=== PATIENT | female | born 1995 | race Caucasian/White ===

== ENCOUNTER 2023-01-23 11:30 | Emergency (ER) | payer OTHER, SELFPAY ==
[2023-01-23 11:59] VITALS: BP 120/80; PULSE 60; RESP 18; TEMP 36.8; O2SAT 100; BMI 23.6
[2023-01-23 12:36] LABS: Basophils % 0.5 %; Eosinophils # 0.1 10^3/uL (0.0-0.8); Eosinophils % 2.8 %; Hematocrit 38.4 % (37.0-47.0); Hemoglobin 12.9 g/dL (11.5-15.3); Lymphocytes # 2.1 10^3/uL (0.8-4.8); Lymphocytes % 48.2 %; Mean Corpuscular HGB Conc 33.6 g/dL (30.0-36.0); Mean Corpuscular Hemoglobin 28.4 pg (28.0-34.0); Mean Corpuscular Volume 84.4 fl (81-99); Mean Platelet Volume 9.5 fL (7.4-10.4); Monocytes # 0.2 10^3/uL (0.2-0.9); Monocytes % 5.4 %; Neutrophils # 1.84 10^3/uL (1.8-7.7); Neutrophils % 43.1 %; Nucleated Red Blood Cells % 0 %; Platelet Count 269 10^3/cmm (130-400); Red Blood Count 4.55 10^6/uL (4.1-5.3); White Blood Count 4.3 10^3/uL (4.0-10.0)
[2023-01-23 12:57] LABS: HCG Quantitative 3.14 mIU/mL
[2023-01-23 13:09] LABS: Alanine Aminotransferase 20 U/L (0-33); Albumin Level 4.9 g/dL (3.5-5.2); Alkaline Phosphatase 94 U/L (35-105); Aspartate Amino Transferase 25 U/L (0-32); Blood Urea Nitrogen 7 mg/dL (6-20); Calcium 9.4 mg/dL (8.5-10.5); Carbon Dioxide 24 mmol/L (22-29); Chloride 102 mmol/L (98-107); Globulin 3.3 g/dL (1.3-4.6); Glomerular Filtration Rate 98.9 mL/min (90-130); Glucose 127 mg/dL (65-115); Osmolality Calculated 286 mOsm/kg (285-295); Sodium 138 mmol/L (136-145); Total Bilirubin 0.4 mg/dL (0.15-1.2); Total Protein 8.2 g/dL (6.6-8.7)
[2023-01-23 13:11] LABS: Add Urine Microscopic? NO; Charge for UA Resulting for Rev
[2023-01-23 13:15] LABS: Bilirubin Urine Neg (Negative); Blood Urine Neg (Negative); Glucose Urine UA Norm (Normal); Ketones Urine Negative (Negative); Leukocyte Esterase Urine Negative (Negative); Nitrate Urine Negative (Negative); Protein Urine Neg (Negative); Specific Gravity, Urine 1.005 (1.005-1.030); Urine Appearance Clear (CLEAR); Urine Color Colorless (Yellow); Urobilinogen Urine Norm (Negative); pH Urine 7 (5-7)
--- NOTE | 2023-01-23 13:20 | ED_ITS ---
HPI - Abdominal Pain General: Chief Complaint: Abdominal Pain Stated Complaint: less than 4 weeks preg, abd pain Time Seen by Provider: 01/23/23 12:36 History of Present Illness: Presents to the ER with complaints of left lower quadrant pain for 3 days. States she went to [facility] last week when she had a small amount of bloody discharge and she was worried about an ectopic because she should be approximately 4 weeks along per her last menstrual cycle. And multiple positive test at home. [facility] told her that she was miscarrying as her hCG was 8. 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 However patient does have 1 living child at home. Patient was on her way home today and started having more pain where she went in about 2 more tests [id number] and they both stated positive so she decided to pull in the ER and be evaluated. Review of Systems General: Reports: 10 or more systems reviewed and unremarkable except in HPI and below Physical Exam Const: COMMON NORMALS: no acute distress, average body habitus, patient oriented x3, no limitations, healthy appearing, alert and well nourished HENMT: COMMON NORMALS: normocephalic, atraumatic, hearing grossly normal bilaterally, external ears normal, Normal external nose present and moist oral mucous membranes HEAD & SCALP: normocephalic and atraumatic NOSE: Normal external nose present EXTERNAL EAR: Yes external ears normal Neck/C-Spine: COMMON NORMALS: full ROM, no lymphadenopathy, supple, no meningeal signs, no JVD and Thyroid normal THYROID: Thyroid normal Chest: COMMONS NORMALS: normal inspection of the chest Resp: COMMON NORMALS: normal respiratory effort, No retractions and No use of accessory muscles Cardio: COMMON NORMALS: no JVD GI: COMMON NORMALS: Normal to inspection, nondistended, normoactive bowel sounds present, Soft to palpation, non-tender, No hepatosplenomegaly present and no masses PALPATION: Yes Soft to palpation and Yes No hepatosplenomegaly present Neuro: COMMON NORMALS: patient oriented x3 SENSORIUM/ORIENTATION: Yes alert MENINGEAL SIGNS: Yes no meningeal signs Course Vital Signs: Vital signs: Vital Signs Temperature 98.2 F 01/23/23 11:59 Pulse Rate 60 01/23/23 11:59 Respiratory Rate 18 01/23/23 11:59 Blood Pressure 120/80 01/23/23 11:59 Pulse Oximetry 100 01/23/23 11:59 Oxygen Delivery Me thod Room Air 01/23/23 11:59 MDM - Abdominal Pain Medical Decision Making Patient presents to the ER with left lower quadrant abdominal pain multiple positive test however she had a very low quantitative beta-hCG at [facility] and was told she was miscarrying. Patient's had no more bleeding since then however we tested her quantitative beta-hCG and we got a 3. Patient had multiple miscarriages in the past secondary to a bicornate uterus. These results were discussed in detail patient patient will be discharged home. Patient says she has appointment with her infertility doctor in approximately 3 days already. Patient should keep that appointment. Differential Diagnosis Likely abdominal pain; Unlikely acute appendicitis, calculus of kidney, constipation, diverticulitis, endometriosis, gastroenteritis, pancreatitis or small bowel obstruction Medical Records I reviewed the patient's medical records. Lab Data I reviewed the patient's lab results. 01/23/23 12:24 01/23/23 12:24 Labs/Radiology: Laboratory Results WBC 4.3 10^3/uL (4.0-10.0) 01/23/23 12:24 RBC 4.55 10^6/uL (4.1-5.3) 01/23/23 12:24 Hgb 12.9 g/dL (11.5-15.3) 01/23/23 12:24 Hct 38.4 % (37.0-47.0) 01/23/23 12:24 MCV 84.4 fl (81-99) 01/23/23 12:24 MCH 28.4 pg (28.0-34.0) 01/23/23 12:24 MCHC 33.6 g/dL (30.0-36.0) 01/23/23 12:24 RDW 13.0 % (12.1-15.1) 01/23/23 12:24 Plt Count 269 10^3/cmm (130-400) 01/23/23 12:24 MPV 9.5 fL (7.4-10.4) 01/23/23 12:24 Neut % (Auto) 43.1 % 01/23/23 12:24 Lymph % (Auto) 48.2 % 01/23/23 12:24 [place] % (Auto) 5.4 % 01/23/23 12:24 Eos % (Auto) 2.8 % 01/23/23 12:24 Baso % (Auto) 0.5 % 01/23/23 12:24 Neut # (Auto) 1.84 10^3/uL (1.8-7.7) 01/23/23 12:24 Lymph # (Auto) 2.1 10^3/uL (0.8-4.8) 01/23/23 12:24 [place] # (Auto) 0.2 10^3/uL (0.2-0.9) 01/23/23 12:24 Eos # (Auto) 0.1 10^3/uL (0.0-0.8) 01/23/23 12:24 Baso # (Auto) 0.0 10^3/uL (0.0-0.1) 01/23/23 12:24 Nucleated RBC % (auto) 0 % 01/23/23 12:24 Nucleated RBCs # 0.0 /100WBC 01/23/23 12:24 Sodium 138 mmol/L (136-145) 01/23/23 12:24 Potassium 4.0 mmol/L (3.5-5.1) 01/23/23 12:24 Chloride 102 mmol/L (98-107) 01/23/23 12:24 Carbon Dioxide 24 mmol/L (22-29) 01/23/23 12:24 Anion Gap 16.0 (5-19) 01/23/23 12:24 BUN 7 mg/dL (6-20) 01/23/23 12:24 Creatinine 0.7 mg/dL (0.5-0.9) 01/23/23 12:24 GFR Calculation 98.9 mL/min (90-130) 01/23/23 12:24 Glucose 127 mg/dL (65-115) H 01/23/23 12:24 Calculated Osmolality 286 mOsm/kg (285-295) 01/23/23 12:24 Calcium 9.4 mg/dL (8.5-10.5) 01/23/23 12:24 Total Bilirubin 0.4 mg/dL (0.15-1.2) 01/23/23 12:24 AST 25 U/L (0-32) 01/23/23 12:24 ALT 20 U/L (0-33) 01/23/23 12:24 Alkaline Phosphatase 94 U/L (35-105) 01/23/23 12:24 Total Protein 8.2 g/dL (6.6-8.7) 01/23/23 12:24 Albumin 4.9 g/dL (3.5-5.2) 01/23/23 12:24 Globulin 3.3 g/dL (1.3-4.6) 01/23/23 12:24 Ser , Semi-Qnt 3.14 mIU/mL 01/23/23 12:24 Urine Color Colorless (Yellow) 01/23/23 11:58 Urine Appearance Clear (CLEAR) 01/23/23 11:58 Urine pH 7 (5-7) 01/23/23 11:58 Ur Specific [place] 1.005 (1.005-1.030) 01/23/23 11:58 Urine Protein Neg (Negative) 01/23/23 11:58 Urine Glucose (UA) Norm (Normal) 01/23/23 11:58 Urine Ketones Negative (Negative) 01/23/23 11:58 Urine Blood Neg (Negative) 01/23/23 11:58 Urine Nitrate Negative (Negative) 01/23/23 11:58 Urine Bilirubin Neg (Negative) 01/23/23 11:58 Urine Urobilinogen Norm mg/dL (Negative) 01/23/23 11:58 Ur Leukocyte Esterase Negative (Negative) 01/23/23 11:58 Blood Type A Positive 01/23/23 12:24 Rho(D) Type Positive 01/23/23 12:24 Discharge Plan Discharge Patient Disposition: Home Clinical Impression: Spontaneous miscarriage Condition: Stable Discharge Orders: Discharge ED (Routine); Ordered 01/23/23 Ordered By: Rome Patel Referrals: Roxanne Lobo MD [Primary Care Provider] - 1 week Patient Instructions: Miscarriage (ED) Activity Restrictions/Additional Instructions: Please keep your appointment with your infertility doctor on as previously planned. Your quantitative beta-hCG was 3 in the ER. This is lower than it was before at [facility]. This most likely means you are having or have had a spontaneous miscarriage. Coding Level of Care Code ED Handle And Vent Machine Operator for Rakesh Del Angel
[2023-01-23 13:35] VITALS: BP 114/76; PULSE 67; RESP 16; TEMP 37; O2SAT 98
== END 2023-01-23 13:39 | disposition home or self-care (01) ==
PROVIDERS: Physician Assistant; Emergency Provider Emergency Medicine; PCP Family Medicine
DX: O03.9 Complete or unspecified spontaneous abortion without complication (principal)
CPT/HCPCS: 36415; 80053; 81003; 84702; 85025; 86900; 99283

== ENCOUNTER 2023-01-29 20:45 | Emergency (ER) | payer OTHER, SELFPAY ==
[2023-01-29 20:55] VITALS: BP 119/82; PULSE 90; RESP 16; TEMP 36.7; O2SAT 100; BMI 23.6
--- NOTE | 2023-01-29 21:15 | ED_ITS ---
HPI - General: Chief complaint: OB/Uterine Contractions Stated complaint: Positive Preg\Etopic Preg Last week Time Seen by Provider: 01/29/23 21:04 Source: patient Mode of arrival: ambulatory Limitations: no limitations History of Present Illness: 28-year-old female who states she has had complicated history of multiple miscarriage and ectopic she is concerned about ectopic states she been having bleeding along with abdominal pain for the last week to 2 weeks. She was seen here last week had a quantitative 5 but states that she keeps having positive urine pregnancies and had a strong 1 today's had some slight bleeding but it has lessened since last week. Has some suprapubic pain she rates a 4 out of 10 currently Associated symptoms: Reports abdominal pain; Deny headache(s), nausea or vomiting Review of Systems Const: Denies: fever(s) or chills ENMT: Denies: throat pain or dental pain Card: Denies: chest pain Resp: Denies: dyspnea GI: Reports: abdominal pain; Denies: nausea, vomiting or diarrhea Skin/Breast: Denies: rash Neuro: Denies: headache(s) Physical Exam Const: COMMON NORMALS: no acute distress and patient oriented x3 HENMT: COMMON NORMALS: atraumatic HEAD & SCALP: atraumatic Eye: COMMON NORMALS: conjunctivae normal CONJUNCTIVA: Yes conjunctivae normal Chest: COMMONS NORMALS: normal inspection of the chest Resp: COMMON NORMALS: normal respiratory effort GI: COMMON NORMALS: Normal to inspection, nondistended, normoactive bowel sounds present, Soft to palpation and non-tender PALPATION: Yes Soft to palpation Neuro: COMMON NORMALS: patient oriented x3 Psych: COMMON NORMALS: mental status grossly normal Skin: COMMON NORMALS: no rashes or lesions noted GENERAL SKIN EXAM: no rashes or lesions noted Course Vital Signs: Vital signs: Vital Signs Temperature 98.1 F 01/29/23 22:44 Pulse Rate 90 01/29/23 22:44 Respiratory Rate 16 01/29/23 22:44 Blood Pressure 119/82 01/29/23 22:44 Pulse Oximetry 100 01/29/23 22:44 Oxygen Delivery Me thod Room Air 01/29/23 20:55 MDM - OB/Uterine Contractions Medical Decision Making Patient presents here with threatened miscarriage her quantitative here is quite low no signs of ectopic on ultrasound she sees a fertility specialist she is to contact him in the morning she had no severe bleeding vital signs here are normal. Lab Data 01/29/23 21:05 01/29/23 21:05 Laboratory Results WBC 7.0 10^3/uL (4.0-10.0) 01/29/23 21:05 RBC 4.33 10^6/uL (4.1-5.3) 01/29/23 21:05 Hgb 12.4 g/dL (11.5-15.3) 01/29/23 21:05 Hct 38.0 % (37.0-47.0) 01/29/23 21:05 MCV 87.8 fl (81-99) 01/29/23 21:05 MCH 28.6 pg (28.0-34.0) 01/29/23 21:05 MCHC 32.6 g/dL (30.0-36.0) 01/29/23 21:05 RDW 13.1 % (12.1-15.1) 01/29/23 21:05 Plt Count 256 10^3/cmm (130-400) 01/29/23 21:05 MPV 9.7 fL (7.4-10.4) 01/29/23 21:05 Neut % (Auto) 60.2 % 01/29/23 21:05 Lymph % (Auto) 31.5 % 01/29/23 21:05 [place] % (Auto) 5.7 % 01/29/23 21:05 Eos % (Auto) 2.0 % 01/29/23 21:05 Baso % (Auto) 0.3 % 01/29/23 21:05 Neut # (Auto) 4.20 10^3/uL (1.8-7.7) 01/29/23 21:05 Lymph # (Auto) 2.2 10^3/uL (0.8-4.8) 01/29/23 21:05 [place] # (Auto) 0.4 10^3/uL (0.2-0.9) 01/29/23 21:05 Eos # (Auto) 0.1 10^3/uL (0.0-0.8) 01/29/23 21:05 Baso # (Auto) 0.0 10^3/uL (0.0-0.1) 01/29/23 21:05 Nucleated RBC % (auto) 0 % 01/29/23 21:05 Nucleated RBCs # 0.0 /100WBC 01/29/23 21:05 Sodium 136 mmol/L (136-145) 01/29/23 21:05 Potassium 3.8 mmol/L (3.5-5.1) 01/29/23 21:05 Chloride 100 mmol/L (98-107) 01/29/23 21:05 Carbon Dioxide 26 mmol/L (22-29) 01/29/23 21:05 Anion Gap 13.8 (5-19) 01/29/23 21:05 BUN 11 mg/dL (6-20) 01/29/23 21:05 Creatinine 0.6 mg/dL (0.5-0.9) 01/29/23 21:05 GFR Calculation 118.2 mL/min (90-130) 01/29/23 21:05 Glucose 89 mg/dL (65-115) 01/29/23 21:05 Calculated Osmolality 281 mOsm/kg (285-295) L 01/29/23 21:05 Calcium 9.3 mg/dL (8.5-10.5) 01/29/23 21:05 Total Bilirubin 0.2 mg/dL (0.15-1.2) 01/29/23 21:05 AST 21 U/L (0-32) 01/29/23 21:05 ALT 18 U/L (0-33) 01/29/23 21:05 Alkaline Phosphatase 81 U/L (35-105) 01/29/23 21:05 Total Protein 7.6 g/dL (6.6-8.7) 01/29/23 21:05 Albumin 4.5 g/dL (3.5-5.2) 01/29/23 21:05 Globulin 3.1 g/dL (1.3-4.6) 01/29/23 21:05 Ser , Semi-Qnt 21.79 mIU/mL 01/29/23 21:05 Discharge Plan Discharge Patient Disposition: Home Clinical Impression: Threatened miscarriage Condition: Stable Discharge Orders: Discharge ED (Routine); Ordered 01/29/23 Ordered By: Penelope Bull Referrals: Roxanne Lobo MD [Primary Care Provider] - Discharge Diet: Advance as tolerated Discharge Activity: Resume usual activity Patient Instructions: Threatened Miscarriage (ED) Coding Level of Care Code ED Labor Relations Teacher for Rakesh Del Angel
[2023-01-29 21:19] LABS: Basophils % 0.3 %; Eosinophils # 0.1 10^3/uL (0.0-0.8); Hemoglobin 12.4 g/dL (11.5-15.3); Lymphocytes # 2.2 10^3/uL (0.8-4.8); Lymphocytes % 31.5 %; Mean Corpuscular HGB Conc 32.6 g/dL (30.0-36.0); Mean Corpuscular Hemoglobin 28.6 pg (28.0-34.0); Mean Corpuscular Volume 87.8 fl (81-99); Mean Platelet Volume 9.7 fL (7.4-10.4); Monocytes # 0.4 10^3/uL (0.2-0.9); Monocytes % 5.7 %; Neutrophils % 60.2 %; Nucleated Red Blood Cells % 0 %; Platelet Count 256 10^3/cmm (130-400); Red Blood Count 4.33 10^6/uL (4.1-5.3); Red Cell Distribution Width 13.1 % (12.1-15.1)
--- NOTE | 2023-01-29 21:23 | PC.NURSE ---
RN into room to perform initial assessment of pt. RN asked pt pain level. Pt stated her pain was at a 7/10 in the suprapubic region. Pt adamantly stated that she did not want any form of pain medication due to fear of complicating chances of getting . RN informed pt that ibuprofen and acetaminophen available. Pt stated that she still did not want any pain medication. MD informed.
[2023-01-29 21:44] LABS: HCG Quantitative 21.79 mIU/mL
--- NOTE | 2023-01-29 21:47 | USR_ITS ---
PROCEDURE INFORMATION: Exam: US First Trimester, Transabdominal and US , Transvaginal Exam date and time: 01/29/2023 9:53 PM Age: 28 years old Clinical indication: complicated by abdominal or pelvic pain; Left lower quadrant; First trimester (<14 weeks 0 days); Gestational age or lmp: 5d; ; Additional info: Abd pain LABS AND CLINICAL REPORTS: Last menstrual period start date: 01/24/2023 TECHNIQUE: Imaging protocol: Real-time transabdominal obstetrical ultrasound of the maternal pelvis and a first trimester , less than 14 weeks 0 days, with image documentation. Transvaginal imaging was used for better evaluation of the fetus, adnexa, and/or cervix. COMPARISON: No relevant prior studies available. FINDINGS: Gestation: Intrauterine gestational sac is not demonstrated. Findings are compatible with of unknown location. A thin walled empty simple cyst in the uterine isthmus is not compelling for a gestational sac. Embryonic/ heart rate: Not relevant. Extra-embryonic membranes/Placenta: Not relevant.. Amniotic fluid: Not relevant. BIOMETRY: Gestational age (AUA): Not determined. MATERNAL: Uterus: Uterus measures 3.0 cm x 9.6 cm x 5.2 cm. Trilaminar endometrial echo complex measures 3 mm. Cervix: Cervical nabothian cysts are noted. Right ovary/adnexa: Physiologic appearance of the right ovary with normal arterial and venous blood flow. Right ovary measures 2.9 x 2.0 x 3.3 cm. Left ovary/adnexa: Physiologic appearance of the left ovary with normal arterial and venous blood flow. Left ovary measures 2.2 x 2.3 x 1.5 cm. Intraperitoneal space: No pelvic free fluid. US/US OB <= 14 weeks fetus [id number] IMPRESSION: 1. Intrauterine gestational sac is not demonstrated. Findings are compatible with of unknown location. Differential diagnosis includes early IUP, early ectopic , or missed . Recommend serial HCG and ultrasound to differentiate. 2. Cervical nabothian cysts are noted. A uterine isthmic thin walled simple cyst is present as well. These are not compelling for gestational sacs.
[2023-01-29 21:55] LABS: Alanine Aminotransferase 18 U/L (0-33); Albumin Level 4.5 g/dL (3.5-5.2); Alkaline Phosphatase 81 U/L (35-105); Anion Gap 13.8 (5-19); Aspartate Amino Transferase 21 U/L (0-32); Blood Urea Nitrogen 11 mg/dL (6-20); Calcium 9.3 mg/dL (8.5-10.5); Carbon Dioxide 26 mmol/L (22-29); Chloride 100 mmol/L (98-107); Creatinine Clr Calc Pharmacy 150.1519; Globulin 3.1 g/dL (1.3-4.6); Glomerular Filtration Rate 118.2 mL/min (90-130); Glucose 89 mg/dL (65-115); Osmolality Calculated 281 mOsm/kg (285-295); Potassium 3.8 mmol/L (3.5-5.1); Sodium 136 mmol/L (136-145); Total Bilirubin 0.2 mg/dL (0.15-1.2); Total Protein 7.6 g/dL (6.6-8.7)
[2023-01-29 22:44] VITALS: BP 119/82; PULSE 90; RESP 16; TEMP 36.7; O2SAT 100
== END 2023-01-29 22:45 | disposition home or self-care (01) ==
PROVIDERS: Emergency Provider Emergency Medicine; PCP Family Medicine
DX: O20.0 Threatened abortion (principal); Z3A.00 Weeks of gestation of pregnancy not specified
CPT/HCPCS: 76801; 80053; 84702; 85025; 99284

== ENCOUNTER 2023-02-01 16:47 | Outpatient (CLI) | payer OTHER, SELFPAY ==
[2023-02-01 17:24] LABS: Progesterone 7.15 ng/mL
[2023-02-02 07:28] LABS: HCG Quantitative 67.39 mIU/mL
== END 2023-02-01 16:48 | disposition home or self-care (01) ==
PROVIDERS: PCP Family Medicine; Visit Provider Family Medicine
DX: Z87.59 Personal history of other complications of pregnancy, childbirth and the puerperium (principal)
CPT/HCPCS: 84144; 84702

== ENCOUNTER 2023-02-06 07:41 | Outpatient (CLI) | payer OTHER, SELFPAY ==
[2023-02-06 08:05] LABS: HCG Quantitative 9.98 mIU/mL
== END 2023-02-06 07:42 | disposition home or self-care (01) ==
PROVIDERS: PCP Family Medicine; Visit Provider Family Medicine
DX: O20.0 Threatened abortion (principal); Z3A.00 Weeks of gestation of pregnancy not specified
CPT/HCPCS: 84702

== ENCOUNTER 2023-05-10 06:31 | Outpatient (CLI) | payer OTHER, SELFPAY ==
[2023-05-10 07:10] LABS: HCG Quantitative 77.85 mIU/mL
== END 2023-05-10 06:32 | disposition home or self-care (01) ==
LOC: LAB 06:37
PROVIDERS: PCP Nurse Practitioner Family; Visit Provider Nurse Practitioner Family
DX: Z32.01 Encounter for pregnancy test, result positive (principal)
CPT/HCPCS: 36415; 84702

== ENCOUNTER 2023-05-12 06:46 | Outpatient (CLI) | payer OTHER, SELFPAY | END 2023-05-12 06:47 | disposition home or self-care (01) | LOC: LAB 06:47 | PROVIDERS: PCP Nurse Practitioner Family; Visit Provider Nurse Practitioner Family | DX: Z32.01 Encounter for pregnancy test, result positive (principal) | CPT/HCPCS: 36415; 84702 ==

== ENCOUNTER 2023-05-12 15:03 | Emergency (ER) | payer OTHER, SELFPAY ==
[2023-05-12 15:14] VITALS: BP 110/72; PULSE 84; RESP 18; TEMP 36.8; O2SAT 98; BMI 24.3
--- NOTE | 2023-05-12 16:00 | USR_ITS ---
PROCEDURE INFORMATION: Exam: US Pelvis, Transvaginal Exam date and time: 05/12/2023 4:53 PM Age: 28 years old Clinical indication: Pelvic pain; Additional info: , pelvic pain TECHNIQUE: Imaging protocol: Real-time transvaginal pelvic ultrasound with image documentation. Transvaginal imaging was used for better evaluation of the endometrium, adnexa, and/or cervix. COMPARISON: US OB <= 14 weeks fetus [id number] 01/29/2023 9:53 PM FINDINGS: Uterus: No IUP visualized. Endometrial stripe measures approximately 11 mm. Some nabothian cysts are present. Right ovary/adnexa: Normal ovarian blood flow. hypoechoic right ovarian foci with peripheral Doppler signal on image 49 measuring approximately 1.6 cm. Left ovary/adnexa: Normal ovarian blood flow. Intraperitoneal space: Small volume free fluid in the cul-de-sac. US/US transvaginal [id number] IMPRESSION: Intrauterine gestational sac is not demonstrated. Hypoechoic right ovarian foci suggestive but not definitive of corpus luteal type cyst. Recommend short-term sonographic follow-up given history of unknown location.
[2023-05-12 16:30] LABS: Add Urine Microscopic? NO; Charge for UA Resulting for Rev
[2023-05-12 16:41] LABS: Bilirubin Urine Neg (Negative); Blood Urine Neg (Negative); Glucose Urine UA Norm (Normal); Ketones Urine Negative (Negative); Leukocyte Esterase Urine Negative (Negative); Nitrate Urine Negative (Negative); Protein Urine Neg (Negative); Specific Gravity, Urine 1.015 (1.005-1.030); Urine Appearance Clear (CLEAR); Urine Color Straw (Yellow); Urobilinogen Urine Norm (Negative); pH Urine 6 (5-7)
--- NOTE | 2023-05-12 17:17 | W.ED.FEMALGU ---
HPI - Female Genitourinary General: Chief complaint: Abdominal Pain Stated complaint: right abd pain Time Seen by Provider: 05/12/23 15:27 History of Present Illness: This patient is a 28-year-old white female who presents to the emergency department complaining of right-sided pelvic pain. She has been having this discomfort of the past several days. Patient states she is but her hCG levels are quite low. According to her last menstrual period which was April 04 she is about 5 weeks along. She is seeing a fertility specialist. She states she has frequent miscarriages as well as ectopic pregnancies and her physician told her to come into the emergency department for an ultrasound. She has not had any vaginal bleeding. No dizziness. Review of Systems General: Reports: 10 or more systems reviewed and unremarkable except in HPI and below Physical Exam Const: COMMON NORMALS: no acute distress, patient oriented x3 and no limitations GENERAL APPEARANCE: cooperative and comfortable HENMT: COMMON NORMALS: normocephalic, atraumatic, Normal nasal mucous membranes and turbinates present, moist oral mucous membranes and oropharynx normal HEAD & SCALP: normal to inspection, normocephalic and atraumatic FACE & SINUS: normal facial exam NOSE: Normal nasal mucous membranes and turbinates present Eye: COMMON NORMALS: Equal, round and reactive pupils present, EOMs intact bilaterally and conjunctivae normal GENERAL EYE: appearance normal, both eyes and all related structures CONJUNCTIVA: Yes conjunctivae normal PUPIL: Yes Equal, round and reactive pupils present Neck/C-Spine: COMMON NORMALS: supple and no JVD Chest: COMMONS NORMALS: normal inspection of the chest Resp: COMMON NORMALS: normal respiratory effort and clear to auscultation bilaterally AUSCULTATION: clear to auscultation bilaterally Cardio: COMMON NORMALS: no JVD, regular rate, regular rhythm, No gallops present (Cardio), No murmurs present (Cardio) and No rub (Cardio) RATE: regular rate RHYTHM: regular rhythm GI: COMMON NORMALS: Normal to inspection, nondistended, normoactive bowel sounds present and Soft to palpation AUSCULTATION: Yes normoactive bowel sounds PALPATION: Yes Soft to palpation OTHER: Some mild discomfort to deep palpation in the right lower quadrant/suprapubic area. : COMMON NORMALS: Yes no CVA tenderness BLADDER/KIDNEY EXAM: Yes no CVA tenderness Back/Pelvis: COMMON NORMALS: no CVA tenderness and thoracic and lumbar spine normal to inspection Extremity: COMMON NORMALS: normal to inspection Neuro: COMMON NORMALS: patient oriented x3 and CN's II-XII intact bilaterally Psych: COMMON NORMALS: mental status grossly normal, Normal thought process present and cooperative THOUGHT PROCESS: Normal thought process present Skin: COMMON NORMALS: no rashes or lesions noted, turgor normal and no jaundice GENERAL SKIN EXAM: no rashes or lesions noted and turgor normal Course Vital Signs: Vital signs: Vital Signs Temperature 98.2 F 05/12/23 15:14 Pulse Rate 84 05/12/23 15:14 Respiratory Rate 18 05/12/23 15:14 Blood Pressure 110/72 05/12/23 15:14 Pulse Oximetry 98 05/12/23 15:14 Oxygen Delivery Me thod Room Air 05/12/23 15:14 MDM - Female Medical Decision Making Urine analysis was normal. Pelvic ultrasound did not reveal an IUP at this time. Good blood flow to both ovaries. Small amount of fluid in the cul-de-sac. Patient's quantitative hCG 2 days ago was 78 and today it is 121. Patient was told that it is way too early to determine viability. She will need repeat quantitative hCGs and follow-up with her fertility specialist. She was discharged in stable condition. Lab Data Laboratory Results Urine Color Straw (Yellow) 05/12/23 15:55 Urine Appearance Clear (CLEAR) 05/12/23 15:55 Urine pH 6 (5-7) 05/12/23 15:55 Ur Specific [place] 1.015 (1.005-1.030) 05/12/23 15:55 Urine Protein Neg (Negative) 05/12/23 15:55 Urine Glucose (UA) Norm (Normal) 05/12/23 15:55 Urine Ketones Negative (Negative) 05/12/23 15:55 Urine Blood Neg (Negative) 05/12/23 15:55 Urine Nitrate Negative (Negative) 05/12/23 15:55 Urine Bilirubin Neg (Negative) 05/12/23 15:55 Urine Urobilinogen Norm mg/dL (Negative) 05/12/23 15:55 Ur Leukocyte Esterase Negative (Negative) 05/12/23 15:55 All radiology interpretation(s) finalized by discharge Discharge Plan Discharge Patient Disposition: Home Clinical Impression: Pelvic pain during Condition: Stable Discharge Orders: Discharge ED (Routine); Ordered 05/12/23 Ordered By: Shashi Manning Referrals: Roxanne Lobo MD [Primary Care Provider] - Patient Instructions: Pelvic Pain in Women (ED) Coding Level of Care Code ED Electronic Repair Troubleshooter for Rakesh Del Angel
== END 2023-05-12 17:24 | disposition home or self-care (01) ==
PROVIDERS: Emergency Provider Emergency Medicine; PCP Family Medicine
DX: O26.891 Other specified pregnancy related conditions, first trimester (principal); R10.2 Pelvic and perineal pain; Z3A.01 Less than 8 weeks gestation of pregnancy
CPT/HCPCS: 76830; 81003; 99284

== ENCOUNTER 2023-05-17 08:05 | Outpatient (CLI) | payer OTHER, SELFPAY | END 2023-05-17 08:06 | disposition home or self-care (01) | LOC: LAB 08:08 | PROVIDERS: PCP Family Medicine; Visit Provider Nurse Practitioner Family | DX: Z32.01 Encounter for pregnancy test, result positive (principal) | CPT/HCPCS: 36415; 84702 ==

== ENCOUNTER 2023-05-24 14:05 | Outpatient (CLI) | payer OTHER, SELFPAY | END 2023-05-24 14:06 | disposition home or self-care (01) | PROVIDERS: PCP Nurse Practitioner Family; Visit Provider Nurse Practitioner Family | DX: O03.9 Complete or unspecified spontaneous abortion without complication (principal) | CPT/HCPCS: 36415; 84702 ==

== ENCOUNTER 2023-05-31 10:23 | Emergency (ER) | payer OTHER, SELFPAY ==
[2023-05-31 10:27] VITALS: BMI 22.8
[2023-05-31 10:36] VITALS: BP 147/84; PULSE 103; RESP 16; TEMP 37.1; O2SAT 96
[2023-05-31 10:54] LABS: Basophils % 0.4 %; Eosinophils # 0.1 10^3/uL (0.0-0.8); Eosinophils % 1.8 %; Lymphocytes % 28.4 %; Mean Corpuscular HGB Conc 32.1 g/dL (30-55); Mean Corpuscular Hemoglobin 27.6 pg (27-33); Mean Platelet Volume 9.4 fL (7.4-10.4); Monocytes # 0.3 10^3/uL (0.2-0.9); Monocytes % 3.9 %; Neutrophils # 4.66 10^3/uL (1.8-7.7); Neutrophils % 65.1 %; Nucleated Red Blood Cells % 0 %; Platelet Count 288 10^3/cmm (157-399); Red Cell Distribution Width 12.4 % (12.1-15.1); White Blood Count 7.16 10^3/uL (3.29-11.43)
--- NOTE | 2023-05-31 10:54 | ECG_ITS ---
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 Measurements Intervals [place] Rate: 74 P: 69 SD: 124 QRS: 86 QRSD: 90 T: 70 QT: 402 QTc: 448 Interpretive Statements SINUS RHYTHM No previous ECG available for comparison Electronically Signed On 05-31-2023 15:29:26 FREIGHT ELEVATOR OPERATOR by Camacho Lee M.D. [id number]
--- NOTE | 2023-05-31 10:54 | CT_ITS ---
WS: [id number] CTA CHEST WITH CT ABDOMEN AND PELVIS. HISTORY: Abdominal pain. Prior LEFT tubal . Unresponsive. Pale and clammy. TECHNIQUE: CT angiogram is performed through the chest. Additional imaging is performed through the a bdomen and pelvis with IV contrast. Sagittal and coronal reformats have been submitted. MIP imaging also reviewed. All CT scans at [facility] use at least one of these dose optimization techniqu es: automated exposure control; mA and/or kV adjustment per patient size (includes targeted exams whe re dose is matched to clinical indication); or iterative reconstruction. Contrast: Omnipaque 350; 95 cc IV. DLP: 853.25 mGy.cm COMPARISON: No similar studies. Chest CTA: Adequate opacification of the pulmonary arteries. There is some breathing motion artifact and mixed attenuation from artifact but no occlusion of the pulmonary arteries or filling defects are identified. Normal sized thoracic aorta. Normal sized pulmonary artery. No RIGHT heart strain. Lungs are clear. No pneumonia or pneumothorax. No pericardial or pleural effusions. No adenopathy. Abdomen CT: Normal liver and spleen. Normal gallbladder. Normal pancreas and adrenal glands. No renal obstruction. Normal renal enhancement. Good opacification of the aorta. No GI tract obstruction. No free air is identified. There is a small umbilical hernia. There are a few very tiny superficial s oft tissue foci of air. These are all external to the peritoneal cavity. These may be injection sites . The largest amount of air is along the LEFT abdominal wall near the oblique muscles. Air extends in to the pelvis. Pelvic CT: Urinary bladder is normally distended. Uterus is normal. RIGHT ovarian cyst 3.3 x 2.3 cm. No LEFT adnexal mass. There is no significant amount of bleeding in the pelvis. There is a very tiny amount of fluid in the pelvis which may be postoperative fluid or a small amount of bleeding. IMPRESSION: 1. No pelvic hematoma or significant fluid identified. There is a very small amount of fluid in the c ul-de-sac. Unremarkable postoperative changes in the LEFT adnexa. 2. No pulmonary embolism identified. 3. No pneumonia. 4. No intraperitoneal free air or abscess. 5. There are a few foci of air along the anterior abdominal/pelvis wall which may be related to the r ecent trocar insertion sites if the surgery was laparoscopic.
--- NOTE | 2023-05-31 10:54 | ED_ITS ---
HPI - Abdominal Pain 2 General: Chief Complaint: Abdominal Pain Stated Complaint: abd pain,tubal preg surgery Time Seen by Provider: 05/31/23 10:28 Source: patient Mode of arrival: ambulatory Limitations: no limitations History of Present Illness: 28-year-old female who had an ectopic pr egnancy she had had ectopic removed last Monday by laparoscopically. Patient was at work today been having increasing abdominal pain and had a syncopal event. Patient states she is got diffuse pain she had some slight vaginal bleeding denies any heavy bleeding she denies any chest pain denies any fevers denies any vaginal discharge she rates her pain a 5 out of 10 currently. Associated Symptoms: Reports syncope; Denies chills, diarrhea, dysuria, fever(s), nausea and vomiting Review of Systems 2 Const: Denies: fever(s), chills, body aches or change in appetite ENMT: Denies: throat pain or dental pain Card: Reports: syncope; Denies: chest pain Resp: Denies: dyspnea GI: Reports: abdominal pain; Denies: nausea, vomiting or diarrhea : Denies: dysuria Musc: Denies: neck pain or back pain Skin/Breast: Denies: rash Neuro: Denies: headache(s) PFSH ED 2 PFSH: Family History (Updated 05/22/23 @ 12:01 by Madie Pérez [facility]) Denies family history of Colon cancer Ovarian cancer Diabetes Heart disease Breast cancer Hypertension Uterine cancer Thyroid disease Stroke Physical Exam 2 Const: COMMON NORMALS: patient oriented x3 HENMT: COMMON NORMALS: normocephalic and atraumatic HEAD & SCALP: n ormocephalic and atraumatic Eye: COMMON NORMALS: Equal, round and reactive pupils present and EOMs intact bilaterally PUPIL: Yes Equal, round and reactive pupils present Neck/C-Spine: COMMON NORMALS: full ROM and supple Chest: COMMONS NORMALS: normal inspection of the chest and normal palpation of entire chest wall Resp: COMMON NORMALS: normal respiratory effort, No retractions, No use of accessory muscles and clear to auscultation bilaterally AUSCULTATION: clear to auscultation bilaterally Cardio: COMMON NORMALS: regular rate, regular rhythm and No murmurs present (Cardio) RATE: regular rate RHYTHM: regular rhythm GI: COMMON NORMALS: Normal to inspection, nondistended, normoactive bowel sounds present, Soft to palpation and no masses PALPATION: Yes Soft to palpation OTHER: Lower abdominal tenderness noted incisions are clean dry and intact Extremity: COMMON NORMALS: normal to inspection and full ROM Neuro: COMMON NORMALS: patient oriented x3, moves all extremities and no focal motor deficits Psych: COMMON NORMALS: mental status grossly normal, Normal thought process present and cooperative THOUGHT PROCESS: Normal thought process present Skin: COMMON NORMALS: no rashes or lesions noted and no wounds GENERAL SKIN EXAM: no rashes or lesions noted Course 2 Vital Signs: Vital signs: Vital Signs Temperature 98.7 F 05/31/23 10:36 Pulse Rate 66 05/31/23 12:11 Respiratory Rate 17 05/31/23 12:11 Blood Pressure 109/72 05/31/23 12:11 Pulse Oximetry 100 05/31/23 12:11 Oxygen Delivery Me thod Room Air 05/31/23 11:13 MDM - Abdominal Pain Medical Decision Making Patient presents here with abdominal pain likely postop pain she had a syncopal event today likely from pain or dehydration her CT scan here is normal no signs of bleeding blood works normal she feels improved after IV fluids she is stable for discharge she is to follow-up with PCP and return if worsening. Medical Records I reviewed the patient's medical records. Lab Data I reviewed the patient's lab results. 05/31/23 10:39 05/31/23 10:39 Labs/Radiology: Laboratory Results WBC 7.16 10^3/uL (3.29-11.43) 05/31/23 10:39 RBC 5.00 10^6/uL (3.85-5.65) 05/31/23 10:39 Hgb 13.80 g/dL (11.27-16.99) 05/31/23 10:39 Hct 43.0 % (36-47) 05/31/23 10:39 MCV 86.0 fl (85-98) 05/31/23 10:39 MCH 27.6 pg (27-33) 05/31/23 10:39 MCHC 32.1 g/dL (30-55) 05/31/23 10:39 RDW 12.4 % (12.1-15.1) 05/31/23 10:39 Plt Count 288 10^3/cmm (157-399) 05/31/23 10:39 MPV 9.4 fL (7.4-10.4) 05/31/23 10:39 Neut % (Auto) 65.1 % 05/31/23 10:39 Lymph % (Auto) 28.4 % 05/31/23 10:39 Benson % (Auto) 3.9 % 05/31/23 10:39 Eos % (Auto) 1.8 % 05/31/23 10:39 Baso % (Auto) 0.4 % 05/31/23 10:39 Neut # (Auto) 4.66 10^3/uL (1.8-7.7) 05/31/23 10:39 Lymph # (Auto) 2.0 10^3/uL (0.8-4.8) 05/31/23 10:39 Benson # (Auto) 0.3 10^3/uL (0.2-0.9) 05/31/23 10:39 Eos # (Auto) 0.1 10^3/uL (0.0-0.8) 05/31/23 10:39 Baso # (Auto) 0.0 10^3/uL (0.0-0.1) 05/31/23 10:39 Nucleated RBC % (auto) 0 % 05/31/23 10:39 Nucleated RBCs # 0.0 /100WBC 05/31/23 10:39 Sodium 137 mmol/L (136-145) 05/31/23 10:39 Potassium 3.8 mmol/L (3.5-5.1) 05/31/23 10:39 Chloride 101 mmol/L (98-107) 05/31/23 10:39 Carbon Dioxide 24 mmol/L (22-29) 05/31/23 10:39 Anion Gap 15.8 (5-19) 05/31/23 10:39 BUN 8 mg/dL (6-20) 05/31/23 10:39 Creatinine 0.7 mg/dL (0.5-0.9) 05/31/23 10:39 GFR Calculation 98.9 mL/min (90-130) 05/31/23 10:39 Glucose 91 mg/dL (65-115) 05/31/23 10:39 Calculated Osmolality 282 mOsm/kg (285-295) L 05/31/23 10:39 Calcium 9.9 mg/dL (8.5-10.5) 05/31/23 10:39 Total Bilirubin 0.3 mg/dL (0.15-1.2) 05/31/23 10:39 AST 31 U/L (0-32) 05/31/23 10:39 ALT 66 U/L (0-33) H 05/31/23 10:39 Alkaline Phosphatase 108 U/L (35-105) H 05/31/23 10:39 Total Protein 8.4 g/dL (6.6-8.7) 05/31/23 10:39 Albumin 4.8 g/dL (3.5-5.2) 05/31/23 10:39 Globulin 3.6 g/dL (1.3-4.6) 05/31/23 10:39 Lipase 34 U/L (13-60) 05/31/23 10:39 Ser , Semi-Qnt 14.30 mIU/mL 05/31/23 10:39 Urine Color Light yellow (Yellow) 05/31/23 10:39 Urine Appearance Clear (CLEAR) 05/31/23 10:39 Urine pH 8 (5-7) H 05/31/23 10:39 Ur Specific [place] 1.020 (1.005-1.030) 05/31/23 10:39 Urine Protein Neg (Negative) 05/31/23 10:39 Urine Glucose (UA) Norm (Normal) 05/31/23 10:39 Urine Ketones Negative (Negative) 05/31/23 10:39 Urine Blood 2+ (Negative) H 05/31/23 10:39 Urine Nitrate Negative (Negative) 05/31/23 10:39 Urine Bilirubin Neg (Negative) 05/31/23 10:39 Prot Sulfosalicylic Acd Negative (Negative) 05/31/23 10:39 Urine Urobilinogen Norm mg/dL (Negative) 05/31/23 10:39 Ur Leukocyte Esterase Negative (Negative) 05/31/23 10:39 Urine RBC 0-4 /hpf (0-2) H 05/31/23 10:39 Urine WBC None /hpf (0-5) 05/31/23 10:39 Ur Squamous Epith Cells 0-4 /hpf (0-5) H 05/31/23 10:39 Ur Transition Epith Cell 0-4 /hpf 05/31/23 10:39 Amorphous Sediment Not Reportable 05/31/23 10:39 Urine Bacteria None /hpf (NONE) 05/31/23 10:39 Urine Mucus None /hpf 05/31/23 10:39 Blood Type A Positive 05/31/23 10:39 Rho(D) Type Rh positive 05/31/23 10:39 Antibody Screen Negative 05/31/23 10:39 All radiology interpretation(s) finalized by discharge Discharge Plan Discharge Patient Disposition: Home Clinical Impression: Syncope Abdominal pain Qualifiers: Abdominal location: generalized Qualified Code(s): R10.84 - Generalized abdominal pain Condition: Stable Prescriptions: No Action ibuprofen 800 mg Tablet 800 mg PO Q8H PRN (Reason: Pain) Discharge Orders: Discharge ED (Routine); Ordered 05/31/23 Ordered By: Penelope Bull Referrals: Juliette Alberts APRN [Primary Care Provider] - 1-3 days Discharge Diet: Advance as tolerated Discharge Activity: Resume usual activity Patient Instructions: Abdominal Pain (ED) Stand Alone Forms: Work/School Release Coding Level of Care Code ED Medical Laboratory Technical Officer for Rakesh Del Angel
[2023-05-31 11:06] LABS: Urine Color Light yellow (Yellow)
[2023-05-31 11:07] LABS: Add Urine Microscopic? YES; Bilirubin Urine Neg (Negative); Blood Urine 2+ (Negative); Glucose Urine UA Norm (Normal); Ketones Urine Negative (Negative); Leukocyte Esterase Urine Negative (Negative); Nitrate Urine Negative (Negative); Protein Urine Neg (Negative); Sulfosalicylic Acid Urine Negative (Negative); Urine Appearance Clear (CLEAR); Urobilinogen Urine Norm (Negative); pH Urine 8 (5-7)
[2023-05-31 11:10] LABS: Alanine Aminotransferase 66 U/L (0-33); Albumin Level 4.8 g/dL (3.5-5.2); Alkaline Phosphatase 108 U/L (35-105); Anion Gap 15.8 (5-19); Aspartate Amino Transferase 31 U/L (0-32); Blood Urea Nitrogen 8 mg/dL (6-20); Calcium 9.9 mg/dL (8.5-10.5); Carbon Dioxide 24 mmol/L (22-29); Chloride 101 mmol/L (98-107); Globulin 3.6 g/dL (1.3-4.6); Glomerular Filtration Rate 98.9 mL/min (90-130); Glucose 91 mg/dL (65-115); Lipase 34 U/L (13-60); Osmolality Calculated 282 mOsm/kg (285-295); Potassium 3.8 mmol/L (3.5-5.1); Sodium 137 mmol/L (136-145); Total Bilirubin 0.3 mg/dL (0.15-1.2); Total Protein 8.4 g/dL (6.6-8.7)
[2023-05-31 11:13] VITALS: BP 121/82; PULSE 77; RESP 18; RESP 22; O2SAT 100; O2SAT 99
[2023-05-31] MEDS: morphine 4 mg/mL SDV 1 mL IVP (11:13)
[2023-05-31] MEDS: ondansetron 2 mg/ML SDV 2 mL 4 MG IVP (11:14)
[2023-05-31] MEDS: sodium chloride 0.9% 1,000 ML 999 ML IV (11:14)
[2023-05-31 11:18] LABS: Add Urine Culture? No; RBC Urine 0-4 /hpf (0-2); Squamous Epithelial Cell Urine 0-4 /hpf (0-5); Transitional Epi Cells Urine 0-4 /hpf
[2023-05-31] MEDS: iohexol 350 mg/mL 500 mL Btl (per mL) IV (11:50)
[2023-05-31 12:11] VITALS: BP 109/72; PULSE 66; RESP 17; O2SAT 100
[2023-05-31 12:45] VITALS: BP 109/72; PULSE 66; RESP 17; O2SAT 100
== END 2023-05-31 12:46 | disposition home or self-care (01) ==
PROVIDERS: Emergency Provider Emergency Medicine; PCP Nurse Practitioner Family
DX: R10.84 Generalized abdominal pain (principal); R55 Syncope and collapse
CPT/HCPCS: 36415; 71275; 74177; 80053; 81001; 83690; 84702; 85025; 86850; 86900; 93005; 96374; 96375; 99285; J2270; J2405; J7030; Q9967

== ENCOUNTER 2023-06-20 08:13 | Outpatient (CLI) | payer OTHER, SELFPAY ==
[2023-06-20 09:29] LABS: 25 Hydroxy Vitamin D 25 ng/mL (30-100)
== END 2023-06-20 08:14 | disposition home or self-care (01) ==
PROVIDERS: PCP Nurse Practitioner Family; Visit Provider Obstetrics & Gynecology
DX: N96 Recurrent pregnancy loss (principal); Z31.69 Encounter for other general counseling and advice on procreation; O00.90 Unspecified ectopic pregnancy without intrauterine pregnancy
CPT/HCPCS: 36415; 82306; 84702; 88262

== ENCOUNTER 2023-07-06 14:36 | Outpatient (CLI) | payer OTHER, SELFPAY | END 2023-07-06 14:37 | disposition home or self-care (01) | PROVIDERS: PCP Nurse Practitioner Family; Visit Provider Nurse Practitioner Family | DX: N92.5 Other specified irregular menstruation (principal) | CPT/HCPCS: 36415; 84702 ==

== ENCOUNTER 2023-07-31 15:08 | Outpatient (CLI) | payer OTHER, SELFPAY | END 2023-07-31 15:09 | disposition home or self-care (01) | PROVIDERS: PCP Nurse Practitioner Family; Visit Provider Nurse Practitioner Family | DX: N92.5 Other specified irregular menstruation (principal) | CPT/HCPCS: 36415; 84702 ==

== ENCOUNTER 2023-09-13 16:10 | Outpatient (CLI) | payer OTHER, SELFPAY | END 2023-09-13 16:11 | disposition home or self-care (01) | LOC: LAB 16:13 | PROVIDERS: PCP Nurse Practitioner Family; Visit Provider Obstetrics & Gynecology | DX: Z32.01 Encounter for pregnancy test, result positive (principal) | CPT/HCPCS: 36415; 84702 ==

== ENCOUNTER 2023-11-08 14:28 | Emergency (ER) | payer OTHER, SELFPAY ==
[2023-11-08 14:31] VITALS: BP 121/81; PULSE 73; RESP 16; TEMP 36.9; O2SAT 98
--- NOTE | 2023-11-08 15:03 | CTR_ITS ---
PROCEDURE INFORMATION: Exam: CT Cervical Spine Without Contrast Exam date and time: 11/08/2023 3:35 PM Age: 28 years old Clinical indication: Injury or trauma; Other: Hit head on t-post; Blunt trauma; Injury details: PT hit center of forehead on t-post. PT has a lac to center of forehead; Additional info: Head inj TECHNIQUE: Imaging protocol: Computed tomography of the cervical spine without contrast. Radiation optimization: All CT scans at this facility use at least one of these dose optimization techniques: automated exposure control; mA and/or kV adjustment per patient size (includes targeted exams where dose is matched to clinical indication); or iterative reconstruction. COMPARISON: CT facial bones wo con* [id number] 11/08/2023 3:35 PM RADIATION DOSE METRICS: Total DLP (mGy-cm): 184.6 FINDINGS: Bones: No acute fracture. Normal alignment. No significant disc bulge or herniation. No severe spinal canal stenosis. No significant neural foraminal narrowing. Lungs: Lung apices are normal. Soft tissues: Unremarkable. CT/CT cervical spin wo con* [id number] IMPRESSION: No acute findings.
--- NOTE | 2023-11-08 15:03 | CTR_ITS ---
PROCEDURE INFORMATION: Exam: CT Maxillofacial Without Contrast Exam date and time: 11/08/2023 3:35 PM Age: 28 years old Clinical indication: Injury or trauma; Other: Hit head on t-posst; Blunt trauma (contusions or hematomas); Forehead; Additional info: Head inj TECHNIQUE: Imaging protocol: Computed tomography of the face without contrast. Radiation optimization: All CT scans at this facility use at least one of these dose optimization techniques: automated exposure control; mA and/or kV adjustment per patient size (includes targeted exams where dose is matched to clinical indication); or iterative reconstruction. COMPARISON: CT head wo con* [id number] 11/08/2023 3:35 PM RADIATION DOSE METRICS: Total DLP (mGy-cm): 565.7 FINDINGS: Orbital cavities: Orbits are normal. Globes are unremarkable. Bones: No acute fracture. Paranasal sinuses: Normal. No air-fluid levels. Soft tissues: Small right frontal scalp hematoma. CT/CT facial bones wo con* [id number] IMPRESSION: No acute findings.
--- NOTE | 2023-11-08 15:03 | CTR_ITS ---
PROCEDURE INFORMATION: Exam: CT Head Without Contrast Exam date and time: 11/08/2023 3:35 PM Age: 28 years old Clinical indication: Injury or trauma; Other: Hit forehead on t-post; Blunt trauma (contusions or hematomas); Without loss of consciousness; Injury details: PT hit center of forehead on t-post. PT has a lac to center of forehead; Additional info: Head inj TECHNIQUE: Imaging protocol: Computed tomography of the head without contrast. Radiation optimization: All CT scans at this facility use at least one of these dose optimization techniques: automated exposure control; mA and/or kV adjustment per patient size (includes targeted exams where dose is matched to clinical indication); or iterative reconstruction. COMPARISON: CT facial bones wo con* [id number] 11/08/2023 3:35 PM RADIATION DOSE METRICS: Total DLP (mGy-cm): 1100 FINDINGS: Brain: No midline shift. Ventricles, cisterns, and sulci are normal. No mass, acute infarct, hemorrhage, or extraaxial fluid collection. Cerebral ventricles: No ventriculomegaly. Paranasal sinuses: Visualized sinuses are unremarkable. No fluid levels. Mastoid air cells: Visualized mastoid air cells are well aerated. Bones: Unremarkable. No acute fracture. Soft tissues: Right frontal scalp hematoma. CT/CT head wo con* [id number] IMPRESSION: No acute intracranial abnormality.
--- NOTE | 2023-11-08 15:38 | ED_ITS ---
Documented by User: TESSIE Muller 11/08/23 18:46 HPI - Wound/Laceration General: Chief Complaint: Wound/Laceration Stated Complaint: head lac Time Seen by Provider: 11/08/23 14:35 Source: patient Mode of arrival: ambulatory Limitations: no limitations History of Present Illness: Patient is a 28-year-old female presenting to the emergency department due to head laceration onset prior to arrival. Patient notes she ran into a T post, which caused a laceration to her central forehead. She notes extensive bleeding from the wound as well as from her bilateral nare, as she states she injured her nose as well and is having some nasal pain. Her tetanus is not up-to-date. She did not lose consciousness or fall to the ground. She is not on any blood thinners. No foreign bodies noted. No neurological deficits. Location: face Place: outdoors Patient tetanus UTD: No Context: accidental Associated symptoms: Denies chills, fever(s), nausea or vomiting Review of Systems General: Reports: 10 or more systems reviewed and unremarkable except in HPI and below Const: Denies: fever(s), chills or fatigue Eyes: Denies: change in vision ENMT: Denies: throat pain, ear or mastoid pain or nasal discharge Card: Denies: chest pain, palpitations, swelling of feet/ankles or lightheadedness Resp: Denies: dyspnea, productive cough or wheezing GI: Denies: abdominal pain, nausea, vomiting, diarrhea or constipation : Denies: flank pain, difficulty voiding, dysuria or urinary frequency Musc: Denies: neck pain, back pain or joint pain Skin/Breast: Reports: new lesions (Laceration to central forehead); Denies: rash Neuro: Reports: headache(s) (Head injury); Denies: numbness in extremities or weakness in extremities PFSH ED PFSH: Family History Denies family history of Colon cancer Ovarian cancer Diabetes Heart disease Breast cancer Hypertension Uterine cancer Thyroid disease Stroke Female Reproductive History: Date of last menstrual period: 11/08/23 Physical Exam Const: COMMON NORMALS: no acute distress, patient oriented x3 and no limitations GENERAL APPEARANCE: cooperative, comfortable and well developed ORIENTATION/CONSCIOUSNESS: Yes awake, Yes oriented to person, Yes oriented to place and Yes oriented to time HENMT: COMMON NORMALS: hearing grossly normal bilaterally, external ears normal and Normal nasal mucous membranes and turbinates present HEAD & SCALP: no Dyson's sign and no raccoon eyes FACE & SINUS: laceration supraoribital Y-shaped and superficial; not actively bleeding, with no foreign body present and not contaminated and Facial tenderness on exam of face and sinuses NOSE: Normal nares present, Normal nasal mucous membranes and turbinates present, Normal septum present, No nasal discharge present and Abnormal external nose present nasal laceration (Small, superficial at bridge of nose) and nasal tenderness; no Epistaxis present EXTERNAL EAR: Yes external ears normal MOUTH: Normal oral and palatal mucosa present Eye: COMMON NORMALS: Equal, round and reactive pupils present, EOMs intact bilaterally and conjunctivae normal CONJUNCTIVA: Yes conjunctivae normal PUPIL: Yes Equal, round and reactive pupils present Neck/C-Spine: COMMON NORMALS: full ROM, supple and no JVD Resp: COMMON NORMALS: normal respiratory effort, No retractions, No use of accessory muscles and clear to auscultation bilaterally AUSCULTATION: clear to auscultation bilaterally Cardio: COMMON NORMALS: no JVD, regular rate, regular rhythm, No clicks present (Cardio), No murmurs present (Cardio) and No rub (Cardio) RATE: regular rate RHYTHM: regular rhythm Extremity: COMMON NORMALS: normal to inspection, full ROM and capillary refill normal Neuro: COMMON NORMALS: patient oriented x3, CN's II-XII intact bilaterally, moves all extremities, no focal motor deficits and no sensory deficits noted SENSORIUM/ORIENTATION: Yes oriented to person, Yes oriented to place and Yes oriented to time Psych: COMMON NORMALS: mental status grossly normal and Normal thought process present THOUGHT PROCESS: Normal thought process present Skin: COMMON NORMALS: no rashes or lesions noted GENERAL SKIN EXAM: no rashes or lesions noted Procedures Laceration Laceration 1: Site: face Size (cm): 3 Description: clean and other (Y-shaped) Depth: simple, single layer Local Anesthetic: lidocaine 2% Pre-repair: wound explored Skin layer closed with: nylon Size (cm): 6-0 Number of sutures: 4 Technique: simple, interrupted Course Vital Signs: Vital signs: Vital Signs Temperature 98.4 F 11/08/23 18:57 Pulse Rate 73 11/08/23 18:57 Respiratory Rate 16 11/08/23 18:57 Blood Pressure 121/81 11/08/23 18:57 Pulse Oximetry 98 11/08/23 18:57 Oxygen Delivery Me thod Room Air 11/08/23 14:31 MDM - Wound/Laceration Medical Decision Making Patient hit head on a T-bar prior to arrival. Tetanus not up-to-date, was updated here in the emergency department. Bleeding was controlled on arrival. Neurologically she was intact and her imaging of head face and cervical neck were all negative for any acute findings. The wound was cleaned with normal saline and anesthetized appropriately, see procedure note. Instructions for wound care given, sutures out in 5 days. Return precautions were given including any worsening signs of infection. All other questions and concerns addressed at this time. Lab Data Radiology Impressions Cervical Spine CT 11/08/23 15:03 IMPRESSION: No acute findings. Face CT 11/08/23 15:03 IMPRESSION: No acute findings. Head CT 11/08/23 15:03 IMPRESSION: No acute intracranial abnormality. All radiology interpretation(s) finalized by discharge Discharge Plan Discharge Patient Disposition: Home Clinical Impression: Laceration Condition: Stable Prescriptions: No Action ondansetron 4 mg tablet,disintegrating 4 mg PO Q6H PRN (Reason: nausea and vomiting) Qty: 60 0RF Discharge Orders: Discharge ED (Routine); Ordered 11/08/23 Ordered By: Hector Saenz Referrals: Juliette Alberts APRN [Primary Care Provider] - Discharge Diet: Usual diet Discharge Activity: Increase activity as tolerated Patient Instructions: Opioid Safety, Pain Management Activity Restrictions/Additional Instructions: Keep wound dry for the first 24 hours, afterwards you may dab clean with soap and water. You may dress wound, but make sure it is dry. Sutures out in 5 days. Monitor for any worsening signs of infection such as redness or swelling. Follow-up with primary care as needed. Return with any new or concerning symptoms you may have. Coding Level of Care Code ED Aerial Gunner Superintendent for Rakesh Fwd Documented by User: Rayshawn Arora DO 11/09/23 08:15 HPI - Wound/Laceration General: Chief Complaint: Wound/Laceration Stated Complaint: head lac Time Seen by Provider: 11/08/23 14:35 PFSH ED PFSH: Family History Denies family history of Colon cancer Ovarian cancer Diabetes Heart disease Breast cancer Hypertension Uterine cancer Thyroid disease Stroke Course Vital Signs: Vital signs: Vital Signs Temperature 98.4 F 11/08/23 18:57 Pulse Rate 73 11/08/23 18:57 Respiratory Rate 16 11/08/23 18:57 Blood Pressure 121/81 11/08/23 18:57 Pulse Oximetry 98 11/08/23 18:57 Oxygen Delivery Me thod Room Air 11/08/23 14:31 MDM - Wound/Laceration Medical Decision Making Patient hit head on a T-bar prior to arrival. Tetanus not up-to-date, was updated here in the emergency department. Bleeding was controlled on arrival. Neurologically she was intact and her imaging of head face and cervical neck were all negative for any acute findings. The wound was cleaned with normal saline and anesthetized appropriately, see procedure note. Instructions for wound care given, sutures out in 5 days. Return precautions were given in cluding any worsening signs of infection. All other questions and concerns addressed at this time. Chart reviewed and patient discussed with midlevel. Agree with assessment and plan. Lab Data Radiology Impressions Cervical Spine CT 11/08/23 15:03 IMPRESSION: No acute findings. Face CT 11/08/23 15:03 IMPRESSION: No acute findings. Head CT 11/08/23 15:03 IMPRESSION: No acute intracranial abnormality. Discharge Plan Discharge Patient Disposition: Home Clinical Impression: Laceration Condition: Stable Prescriptions: No Action ondansetron 4 mg tablet,disintegrating 4 mg PO Q6H PRN (Reason: nausea and vomiting) Qty: 60 0RF Discharge Orders: Discharge ED (Routine); Ordered 11/08/23 Ordered By: Hector Saenz Referrals: Juliette Alberts APRN [Primary Care Provider] - Discharge Diet: Usual diet Discharge Activity: Increase activity as tolerated Patient Instructions: Opioid Safety, Pain Management Activity Restrictions/Additional Instructions: Keep wound dry for the first 24 hours, afterwards you may dab clean with soap and water. You may dress wound, but make sure it is dry. Sutures out in 5 days. Monitor for any worsening signs of infection such as redness or swelling. Follow-up with primary care as needed. Return with any new or concerning symptoms you may have. Coding Level of Care Code ED Aerial Gunner Superintendent for Rakesh Del Angel
--- NOTE | 2023-11-08 18:55 | PC.NURSE ---
patient refused to wait for tetanus shot and stated she would go to health department. patient verbalized understanding of discharge and to follow up with health department for tetanus shot. pharmacy called to reorder med and patient verbalized need to leave.
[2023-11-08 18:57] VITALS: BP 121/81; PULSE 73; RESP 16; TEMP 36.9; O2SAT 98
== END 2023-11-08 18:58 | disposition home or self-care (01) ==
PROVIDERS: Emergency Provider Physician Assistant; PCP Nurse Practitioner Family
DX: S01.21XA Laceration without foreign body of nose, initial encounter (principal); W22.09XA Striking against other stationary object, initial encounter
CPT/HCPCS: 12013; 70450; 70486; 72125; 99284

== ENCOUNTER 2023-11-13 17:51 | Outpatient (CLI) | payer OTHER, SELFPAY ==
[2023-11-13 20:30] LABS: Thyroid Stimulating Hormone 1.39 uIU/mL (0.27-4.20)
[2023-11-13 20:47] LABS: HIV 1 & 2 Antibody Non-Reactive (Non-Reactiv); HIV 1 & 2 Antigen Non-Reactive (Non-Reactiv)
[2023-11-13 20:49] LABS: Hepatitis B Core AB, Total Non-Reactive (Nonreactive); Hepatitis B Surface Antigen Non-Reactive (Nonreactive); Hepatitis C Virus Antibody Non-Reactive (Nonreactive)
[2023-11-15 12:45] LABS: RPR w(Moniotor) w/REFL Titer NON-REACTIVE (NON-REACTIVE)
[2023-11-15 15:55] LABS: Cytomegalovirus IgG Antibody >10.00 U/mL
[2023-11-15 17:14] LABS: Chlamydia Trachomatis RNA TMA NOT DETECTED (NOT DETECTED); Neisseria Gonorrhoeae RNA, TMA NOT DETECTED (NOT DETECTED)
[2023-11-17 18:30] LABS: Factor VIII Activity Clotting 124 % normal (50-180)
[2023-11-18 20:06] LABS: Anti-Mullerian Hormone Female 1.62 ng/mL (0.69-13.39)
[2023-11-20 15:15] LABS: Methylenetetrahydrofolate Red POSITIVE
[2023-11-23 11:53] LABS: PROTHROMBIN (FACTOR II) 20210G NEGATIVE
[2023-11-23 12:49] LABS: Factor 5 Leiden Mutation NEGATIVE
== END 2023-11-13 17:52 | disposition home or self-care (01) ==
LOC: LAB 17:52
PROVIDERS: PCP Nurse Practitioner Family; Visit Provider Specialist
DX: R53.83 Other fatigue (principal); E34.9 Endocrine disorder, unspecified; Z20.6 Contact with and (suspected) exposure to human immunodeficiency virus [HIV]
CPT/HCPCS: 36415; 81241; 81291; 83520; 84443; 85210; 85240; 86592; 86644; 86645; 86704; 86803; 86900; 87340; 87491; 87591; 87806; 88262

== ENCOUNTER 2024-03-19 09:47 | Outpatient (CLI) | payer OTHER, SELFPAY ==
[2024-03-19 10:39] LABS: HCG Quantitative 10.25 mIU/mL; Progesterone 23.38 ng/mL
== END 2024-03-19 09:48 | disposition home or self-care (01) ==
LOC: LAB 09:55
PROVIDERS: PCP Nurse Practitioner Family; Visit Provider Specialist
DX: Z01.89 Encounter for other specified special examinations (principal)
CPT/HCPCS: 84144; 84702

== ENCOUNTER 2024-03-21 05:55 | Outpatient (CLI) | payer OTHER, SELFPAY ==
[2024-03-21 06:55] LABS: Progesterone 52.62 ng/mL
== END 2024-03-21 05:56 | disposition home or self-care (01) ==
LOC: LAB 05:58
PROVIDERS: Visit Provider Specialist
DX: R53.83 Other fatigue (principal); E34.9 Endocrine disorder, unspecified; N92.6 Irregular menstruation, unspecified
CPT/HCPCS: 84144; 84702

== ENCOUNTER 2024-04-10 10:08 | Emergency (ER) | payer OTHER, SELFPAY ==
[2024-04-10 10:21] VITALS: BP 122/86; PULSE 79; RESP 18; TEMP 36.9; O2SAT 100; BMI 27.3
[2024-04-10 10:58] LABS: Basophils % 0.5 %; Eosinophils # 0.1 10^3/uL (0.0-0.8); Eosinophils % 1.5 %; Hematocrit 36.8 % (36-47); Lymphocytes # 1.6 10^3/uL (0.8-4.8); Lymphocytes % 23.9 %; Mean Corpuscular HGB Conc 31.8 g/dL (30-55); Mean Corpuscular Hemoglobin 27.5 pg (27-33); Mean Corpuscular Volume 86.4 fl (85-98); Mean Platelet Volume 9.4 fL (7.4-10.4); Monocytes # 0.3 10^3/uL (0.2-0.9); Monocytes % 5.2 %; Neutrophils # 4.49 10^3/uL (1.8-7.7); Neutrophils % 68.6 %; Nucleated Red Blood Cells % 0 %; Platelet Count 271 10^3/cmm (157-399); Red Blood Count 4.26 10^6/uL (3.85-5.65); Red Cell Distribution Width 13.2 % (12.1-15.1); White Blood Count 6.54 10^3/uL (3.29-11.43)
--- NOTE | 2024-04-10 11:18 | US_ITS ---
WS: [id number] EARLY OBSTETRICAL ULTRASOUND (<14 WEEKS). HISTORY: abd pain COMPARISON: None available. Single intrauterine gestational sac is identified. Cardiac activity at 124 BPM. [place]-rump length tino sures 0.9 cm which corresponds to a gestation of 6w6d. Normal-appearing yolk sac and amnion demonstra denice. No subchorionic hemorrhage. No free fluid. RIGHT ovary is not identified. Small caliber LEFT ovary. US/US OB <= 14 weeks fetus [id number] IMPRESSION: 1. Single intrauterine gestation of 6w6d with an EDC of 11/28/2024. 2. Normal embryonic cardiac cavity.
--- NOTE | 2024-04-10 11:19 | ED_ITS ---
HPI - Abdominal Pain 2 General: Chief Complaint: Abdominal Pain Stated Complaint: abd pain (7 wks preg) Time Seen by Provider: 04/10/24 10:51 Source: patient Mode of arrival: ambulatory Limitations: no limitations History of Present Illness: 39-year-old female who currently 7 weeks she is on IVF out of [place] has had multiple miscarriages and ectopic in the past. States she did have some left lower abdominal pain over the last 2 days she states she had an ultrasound a week ago that saw an IUP she has been given herself Lovenox shots as well through her IVF specialist states that she gives the shots on that left sides had some knots and bruising at the site. Associated Symptoms: Denies chills, diarrhea, dysuria, fever(s), nausea and vomiting Related Data Home Medications Medication Instructions Recorded Confirmed enoxaparin 60 mg/0.6 mL 1 mg SUBCUT PRN PRN Headache 04/10/24 04/10/24 subcutaneous syringe prednisone 20 mg tablet 20 mg PO DAILY 04/10/24 04/10/24 Previous Rx's Medication Instructions Recorded ondansetron 4 mg disintegrating 4 mg PO Q6H PRN nausea and 11/08/23 tablet vomiting #60 tabs Allergies Allergy/AdvReac Type Severity Reaction Status Date / Time No Known Allergies Allergy Verified 05/31/23 11:26 Review of Systems 2 Const: Denies: fever(s), chills, body aches or change in appetite ENMT: Denies: throat pain or dental pain Card: Denies: chest pain Resp: Denies: dyspnea GI: Reports: abdominal pain; Denies: nausea, vomiting or diarrhea : Denies: dysuria Musc: Denies: neck pain or back pain Skin/Breast: Denies: rash Neuro: Denies: headache(s) PFSH ED 2 PFSH: Family History Denies family history of Colon cancer Ovarian cancer Diabetes Heart disease Breast cancer Hypertension Uterine cancer Thyroid disease Stroke Female Reproductive History: : 9 Physical Exam 2 Const: COMMON NORMALS: no acute distress, patient oriented x3 and healthy appearing HENMT: COMMON NORMALS: normocephalic and atraumatic HEAD & SCALP: n ormocephalic and atraumatic Eye: COMMON NORMALS: Equal, round and reactive pupils present and EOMs intact bilaterally PUPIL: Yes Equal, round and reactive pupils present Neck/C-Spine: COMMON NORMALS: full ROM Chest: COMMONS NORMALS: normal inspection of the chest Resp: COMMON NORMALS: normal respiratory effort Cardio: COMMON NORMALS: regular rate, regular rhythm and No murmurs present (Cardio) RATE: regular rate RHYTHM: regular rhythm GI: OTHER: Mild left lower quadrant tenderness does have bruising of her Lovenox shot sites Extremity: COMMON NORMALS: normal to inspection and full ROM Neuro: COMMON NORMALS: patient oriented x3, moves all extremities and no focal motor deficits Psych: COMMON NORMALS: mental status grossly normal, Normal thought process present and cooperative THOUGHT PROCESS: Normal thought process present Skin: COMMON NORMALS: no rashes or lesions noted and no wounds GENERAL SKIN EXAM: no rashes or lesions noted Course 2 Vital Signs: Vital signs: Vital Signs Temperature 98.4 F 04/10/24 10:21 Pulse Rate 79 04/10/24 10:21 Respiratory Rate 18 04/10/24 10:21 Blood Pressure 122/86 04/10/24 10:21 Pulse Oximetry 100 04/10/24 10:21 Oxygen Delivery Me thod Room Air 04/10/24 10:21 MDM - Abdominal Pain Medical Decision Making Patient presents here with abdominal pain in ultrasound showed IUP no signs of heterotopic likely having some pain at the sites of injection. Blood work is normal she stable for discharge she is follow-up with her OB return if worsening. Medical Records I reviewed the patient's medical records. Lab Data I reviewed the patient's lab results. 04/10/24 10:45 04/10/24 10:45 Labs/Radiology: Radiology Impressions Ultrasound 04/10/24 11:18 IMPRESSION: 1. Single intrauterine gestation of 6w6d with an EDC of 11/28/2024. 2. Normal embryonic cardiac cavity. Laboratory Results WBC 6.54 10^3/uL (3.29-11.43) 04/10/24 10:45 RBC 4.26 10^6/uL (3.85-5.65) 04/10/24 10:45 Hgb 11.70 g/dL (11.27-16.99) 04/10/24 10:45 Hct 36.8 % (36-47) 04/10/24 10:45 MCV 86.4 fl (85-98) 04/10/24 10:45 MCH 27.5 pg (27-33) 04/10/24 10:45 MCHC 31.8 g/dL (30-55) 04/10/24 10:45 RDW 13.2 % (12.1-15.1) 04/10/24 10:45 Plt Count 271 10^3/cmm (157-399) 04/10/24 10:45 MPV 9.4 fL (7.4-10.4) 04/10/24 10:45 Neut % (Auto) 68.6 % 04/10/24 10:45 Lymph % (Auto) 23.9 % 04/10/24 10:45 [place] % (Auto) 5.2 % 04/10/24 10:45 Eos % (Auto) 1.5 % 04/10/24 10:45 Baso % (Auto) 0.5 % 04/10/24 10:45 Neut # (Auto) 4.49 10^3/uL (1.8-7.7) 04/10/24 10:45 Lymph # (Auto) 1.6 10^3/uL (0.8-4.8) 04/10/24 10:45 [place] # (Auto) 0.3 10^3/uL (0.2-0.9) 04/10/24 10:45 Eos # (Auto) 0.1 10^3/uL (0.0-0.8) 04/10/24 10:45 Baso # (Auto) 0.0 10^3/uL (0.0-0.1) 04/10/24 10:45 Nucleated RBC % (auto) 0 % 04/10/24 10:45 Nucleated RBCs # 0.0 /100WBC 04/10/24 10:45 Sodium 136 mmol/L (136-145) 04/10/24 10:45 Potassium 3.7 mmol/L (3.5-5.1) 04/10/24 10:45 Chloride 102 mmol/L (98-107) 04/10/24 10:45 Carbon Dioxide 24 mmol/L (22-29) 04/10/24 10:45 Anion Gap 13.7 (5-19) 04/10/24 10:45 BUN 8 mg/dL (6-20) 04/10/24 10:45 Creatinine 0.6 mg/dL (0.5-0.9) 04/10/24 10:45 GFR Calculation 117.4 mL/min (90-130) 04/10/24 10:45 Glucose 89 mg/dL (65-115) 04/10/24 10:45 Calculated Osmolality 280 mOsm/kg (285-295) L 04/10/24 10:45 Calcium 8.8 mg/dL (8.5-10.5) 04/10/24 10:45 Total Bilirubin 0.3 mg/dL (0.15-1.2) 04/10/24 10:45 AST 21 U/L (0-32) 04/10/24 10:45 ALT 36 U/L (0-33) H 04/10/24 10:45 Alkaline Phosphatase 85 U/L (35-105) 04/10/24 10:45 Total Protein 6.9 g/dL (6.6-8.7) 04/10/24 10:45 Albumin 4.2 g/dL (3.5-5.2) 04/10/24 10:45 Globulin 2.7 g/dL (1.3-4.6) 04/10/24 10:45 Lipase 28 U/L (13-60) 04/10/24 10:45 Ser , Semi-Qnt 12865.00 mIU/mL 04/10/24 10:45 Urine Color Yellow (Yellow) 04/10/24 10:31 Urine Appearance Clear (CLEAR) 04/10/24 10:31 Urine pH 7.0 (5-7) 04/10/24 10:31 Ur Specific [place] 1.009 (1.005-1.030) 04/10/24 10:31 Urine Protein Negative (Negative) 04/10/24 10:31 Urine Glucose (UA) Negative (Normal) 04/10/24 10:31 Urine Ketones Negative (Negative) 04/10/24 10:31 Urine Blood Negative (Negative) 04/10/24 10:31 Urine Nitrate Negative (Negative) 04/10/24 10:31 Urine Bilirubin Negative (Negative) 04/10/24 10:31 Urine Urobilinogen 1.0 mg/dL (Negative) 04/10/24 10:31 Ur Leukocyte Esterase Negative (Negative) 04/10/24 10:31 Urine RBC 0-2 /hpf (0-2) 04/10/24 10:31 Urine WBC 0-5 /hpf (0-5) 04/10/24 10:31 Ur Squamous Epith Cells 0-5 /hpf (0-5) 04/10/24 10:31 Amorphous Sediment Not Reportable 04/10/24 10:31 Urine Bacteria None seen /hpf (NONE) 04/10/24 10:31 Hyaline Casts 0-4 /lpf H 04/10/24 10:31 All radiology interpretation(s) finalized by discharge Discharge Plan Discharge Patient Disposition: Home Clinical Impression: Abdominal pain affecting Condition: Stable Prescriptions: No Action ondansetron 4 mg tablet,disintegrating 4 mg PO Q6H PRN (Reason: nausea and vomiting) Qty: 60 0RF prednisone 20 mg tablet 20 mg PO DAILY enoxaparin 60 mg/0.6 mL syringe 1 mg SUBCUT PRN PRN (Reason: Headache) Discharge Orders: Discharge ED (Routine); Ordered 04/10/24 Ordered By: Penelope Bull Referrals: Gayathri Mera MD [Primary Care Provider] - 4-7 days Discharge Diet: Advance as tolerated Discharge Activity: Resume usual activity Patient Instructions: Abdominal Pain (ED) Coding Level of Care Code ED Hydraulic Plumber for Rakesh Del Angel
[2024-04-10 11:20] LABS: Bilirubin Urine Negative (Negative); Blood Urine Negative (Negative); Glucose Urine UA Negative (Normal); Ketones Urine Negative (Negative); Leukocyte Esterase Urine Negative (Negative); Nitrate Urine Negative (Negative); Protein Urine Negative (Negative); Specific Gravity, Urine 1.009 (1.005-1.030); Urine Appearance Clear (CLEAR); Urine Color Yellow (Yellow)
[2024-04-10 11:22] LABS: Add Urine Microscopic? YES; Bacteria Urine None Seen /hpf; Hyaline Casts Urine 0-4 /lpf; RBC Urine 0-2 /hpf (0-2); Squamous Epithelial Cell Urine 0-5 /hpf (0-5); WBC Urine 0-5 /hpf (0-5)
[2024-04-10 11:36] LABS: Alanine Aminotransferase 36 U/L (0-33); Albumin Level 4.2 g/dL (3.5-5.2); Alkaline Phosphatase 85 U/L (35-105); Anion Gap 13.7 (5-19); Aspartate Amino Transferase 21 U/L (0-32); Blood Urea Nitrogen 8 mg/dL (6-20); Calcium 8.8 mg/dL (8.5-10.5); Carbon Dioxide 24 mmol/L (22-29); Chloride 102 mmol/L (98-107); Creatinine Clr Calc Pharmacy 158.6167; Globulin 2.7 g/dL (1.3-4.6); Glomerular Filtration Rate 117.4 mL/min (90-130); Glucose 89 mg/dL (65-115); Lipase 28 U/L (13-60); Osmolality Calculated 280 mOsm/kg (285-295); Potassium 3.7 mmol/L (3.5-5.1); Sodium 136 mmol/L (136-145); Total Bilirubin 0.3 mg/dL (0.15-1.2); Total Protein 6.9 g/dL (6.6-8.7)
[2024-04-10 12:41] VITALS: BP 135/90; PULSE 82; O2SAT 100
== END 2024-04-10 12:42 | disposition home or self-care (01) ==
PROVIDERS: Emergency Provider Emergency Medicine; PCP Obstetrics & Gynecology
DX: O26.891 Other specified pregnancy related conditions, first trimester (principal); R10.32 Left lower quadrant pain; Z3A.01 Less than 8 weeks gestation of pregnancy
CPT/HCPCS: 36415; 76801; 80053; 81001; 83690; 84702; 85025; 99284

== ENCOUNTER → 2024-05-01 11:24 | Outpatient (BNVA) | payer OTHER, SELFPAY | PROVIDERS: PCP Obstetrics & Gynecology; Visit Provider Nurse Practitioner Women's Health | DX: N92.6 Irregular menstruation, unspecified (principal); N96 Recurrent pregnancy loss | CPT/HCPCS: 81025; 84144; 84702; 86850; 86900 ==

== ENCOUNTER → 2024-05-13 14:21 | Outpatient (BNVA) | payer OTHER, SELFPAY | PROVIDERS: PCP Obstetrics & Gynecology; Visit Provider Nurse Practitioner Women's Health | DX: Z36.9 Encounter for antenatal screening, unspecified (principal) | CPT/HCPCS: 76801 ==

== ENCOUNTER → 2024-05-16 09:22 | Outpatient (BNVA) | payer OTHER, SELFPAY | PROVIDERS: PCP Obstetrics & Gynecology; Visit Provider Nurse Practitioner Women's Health | DX: Z34.90 Encounter for supervision of normal pregnancy, unspecified, unspecified trimester (principal); N96 Recurrent pregnancy loss | CPT/HCPCS: 80307; 84144; 84315; 84443; 85025; 86592; 86762; 86803; 86850; 86900; 87086; 87340; 87491; 87591; 87806 ==

== ENCOUNTER → 2024-06-10 08:01 | Outpatient (BNVA) | payer OTHER, SELFPAY | PROVIDERS: PCP Obstetrics & Gynecology; Visit Provider Obstetrics & Gynecology | DX: Z34.80 Encounter for supervision of other normal pregnancy, unspecified trimester (principal); Z3A.12 12 weeks gestation of pregnancy | CPT/HCPCS: 84144 ==

== ENCOUNTER → 2024-07-08 11:49 | Outpatient (BNVA) | payer OTHER, SELFPAY | PROVIDERS: PCP Obstetrics & Gynecology; Visit Provider Nurse Practitioner Women's Health | DX: Z34.90 Encounter for supervision of normal pregnancy, unspecified, unspecified trimester (principal) | CPT/HCPCS: 84315 ==

== ENCOUNTER → 2024-08-12 08:14 | Outpatient (BNVA) | payer OTHER, SELFPAY | PROVIDERS: PCP Obstetrics & Gynecology; Visit Provider Obstetrics & Gynecology | DX: Z34.80 Encounter for supervision of other normal pregnancy, unspecified trimester (principal) | CPT/HCPCS: 84315 ==

== ENCOUNTER → 2024-08-19 10:31 | Outpatient (BNVA) | payer OTHER, SELFPAY | PROVIDERS: PCP Obstetrics & Gynecology; Visit Provider Obstetrics & Gynecology | DX: Z34.80 Encounter for supervision of other normal pregnancy, unspecified trimester (principal) | CPT/HCPCS: 82950 ==

== ENCOUNTER 2024-08-23 19:11 | Outpatient (CLI) | payer OTHER, SELFPAY ==
[2024-08-23] VITALS (25 sets, daily range): BP systolic 108–141; BP diastolic 53–74; PULSE 76–100; RESP 16; TEMP 36.7; O2SAT 97–100; BMI 32.3
[2024-08-23 19:52] LABS: Bilirubin Urine Negative (Negative); Blood Urine Negative (Negative); Glucose Urine UA Negative (Normal); Ketones Urine Negative (Negative); Leukocyte Esterase Urine Negative (Negative); Nitrate Urine Negative (Negative); Protein Urine Negative (Negative); Specific Gravity, Urine 1.008 (1.005-1.030); Urine Appearance Clear (CLEAR); Urine Color Yellow (Yellow)
[2024-08-23 20:05] LABS: Add Urine Culture? No; Bacteria Urine 1+ /hpf; RBC Urine 0-4 /hpf (0-2); WBC Urine 0-4 /hpf (0-5)
== END 2024-08-23 20:54 | disposition home or self-care (01) ==
LOC: OPOB 19:16 → OBGYN 19:17
PROVIDERS: PCP Obstetrics & Gynecology; Visit Provider Obstetrics & Gynecology
DX: O16.9 Unspecified maternal hypertension, unspecified trimester (principal); Z3A.00 Weeks of gestation of pregnancy not specified; R10.9 Unspecified abdominal pain
CPT/HCPCS: 81001; 99211

== ENCOUNTER 2024-08-29 10:20 | Outpatient (CLI) | payer OTHER, SELFPAY ==
[2024-08-29] VITALS (7 sets, daily range): BP systolic 117–145; BP diastolic 64–78; PULSE 83–106; BMI 32.1
[2024-08-29 12:14] LABS: Add Urine Microscopic? NO
[2024-08-29 12:16] LABS: Bilirubin Urine Negative (Negative); Blood Urine Negative (Negative); Glucose Urine UA Negative (Normal); Ketones Urine Negative (Negative); Leukocyte Esterase Urine Negative (Negative); Nitrate Urine Negative (Negative); Protein Urine Negative (Negative); Specific Gravity, Urine 1.017 (1.005-1.030); Urine Appearance Clear (CLEAR); Urine Color Yellow (Yellow)
[2024-08-29 12:21] LABS: Basophils % 0.1 %; Eosinophils # 0.1 10^3/uL (0.0-0.8); Eosinophils % 0.9 %; Hematocrit 34.3 % (36-47); Lymphocytes # 1.6 10^3/uL (0.8-4.8); Lymphocytes % 17.3 %; Mean Corpuscular HGB Conc 32.9 g/dL (30-55); Mean Corpuscular Hemoglobin 29.4 pg (27-33); Mean Corpuscular Volume 89.1 fl (85-98); Mean Platelet Volume 9.6 fL (7.4-10.4); Monocytes # 0.5 10^3/uL (0.2-0.9); Monocytes % 5.1 %; Neutrophils # 7.15 10^3/uL (1.8-7.7); Neutrophils % 76.1 %; Nucleated Red Blood Cells % 0 %; Platelet Count 253 10^3/cmm (157-399); Red Blood Count 3.85 10^6/uL (3.85-5.65); Red Cell Distribution Width 12.6 % (12.1-15.1); White Blood Count 9.39 10^3/uL (3.29-11.43)
[2024-08-29 12:29] LABS: Charge for UA Resulting for Rev
[2024-08-29 12:36] LABS: Urine Creatinine 95 mg/dL (28-217); Urine Protein Random 9 mg/dL
[2024-08-29 12:37] LABS: UPRO/UCREAT Ratio 0.09 mg/mg CR
[2024-08-29 12:39] LABS: Alanine Aminotransferase 7 U/L (0-33); Albumin Level 3.8 g/dL (3.5-5.2); Alkaline Phosphatase 119 U/L (35-105); Anion Gap 13.5 (5-19); Aspartate Amino Transferase 12 U/L (0-32); Blood Urea Nitrogen 6 mg/dL (6-20); Calcium 8.8 mg/dL (8.5-10.5); Carbon Dioxide 22 mmol/L (22-29); Chloride 103 mmol/L (98-107); Creatinine Clr Calc Pharmacy 257.3626; Globulin 3.3 g/dL (1.3-4.6); Glomerular Filtration Rate 187.4 mL/min (90-130); Glucose 83 mg/dL (65-115); Osmolality Calculated 277 mOsm/kg (285-295); Potassium 3.5 mmol/L (3.5-5.1); Sodium 135 mmol/L (136-145); Total Bilirubin 0.2 mg/dL (0.15-1.2); Total Protein 7.1 g/dL (6.6-8.7); Uric Acid 2.3 mg/dL (2.4-5.7)
== END 2024-08-29 13:00 | disposition home or self-care (01) ==
LOC: OPOB 10:23 → OBGYN 10:39
PROVIDERS: Absent Provider Family Medicine; PCP Obstetrics & Gynecology; Visit Provider Family Medicine
DX: O16.9 Unspecified maternal hypertension, unspecified trimester (principal); Z3A.00 Weeks of gestation of pregnancy not specified
CPT/HCPCS: 36415; 59025; 80053; 81003; 82570; 84156; 84550; 85025; 99211

== ENCOUNTER 2024-09-28 08:18 | Outpatient (CLI) | payer OTHER, SELFPAY ==
[2024-09-28] VITALS (9 sets, daily range): BP systolic 117–147; BP diastolic 62–77; PULSE 77–112; BMI 36.5
[2024-09-28] MEDS: lactated ringers 1,000 ML 999 ML IV (10:42)
[2024-09-28] MEDS: terbutaline 1 mg/mL INJ 0.25 MG SUBCUT (10:43)
== END 2024-09-28 11:28 | disposition home or self-care (01) ==
LOC: OPOB 08:19 → OBGYN 08:20 → OPOB 08:29 → OBGYN 08:30
PROVIDERS: PCP Obstetrics & Gynecology; Visit Provider Obstetrics & Gynecology
DX: O26.899 Other specified pregnancy related conditions, unspecified trimester (principal); Z3A.00 Weeks of gestation of pregnancy not specified; W19.XXXA Unspecified fall, initial encounter
CPT/HCPCS: 59025; 96372; 99211; J3105; J7120

== ENCOUNTER 2024-10-15 09:59 | Outpatient (CLI) | payer OTHER, SELFPAY ==
[2024-10-15 09:50] VITALS: BMI 34.4
[2024-10-15 10:15] VITALS: BP 133/81; PULSE 85
[2024-10-15 10:24] LABS: Nitrazine Paper, PH Negative
[2024-10-15 10:30] VITALS: BP 126/77; PULSE 83
[2024-10-15 10:45] VITALS: BP 122/71; PULSE 84
[2024-10-15 11:00] VITALS: BP 124/73; PULSE 82
[2024-10-15 11:19] VITALS: BP 113/75; PULSE 75; RESP 16; O2SAT 98
== END 2024-10-15 11:19 | disposition home or self-care (01) ==
LOC: OPOB 10:01 → OBGYN 10:02
PROVIDERS: PCP Obstetrics & Gynecology; Visit Provider Family Medicine
DX: O26.899 Other specified pregnancy related conditions, unspecified trimester (principal); Z3A.00 Weeks of gestation of pregnancy not specified; R10.9 Unspecified abdominal pain; N89.8 Other specified noninflammatory disorders of vagina
CPT/HCPCS: 59025; 83986; 99211

== ENCOUNTER 2024-10-16 07:57 | Oncology outpatient (recurring) (ONCR) | payer OTHER, SELFPAY ==
[2024-10-16 08:28] VITALS: BP 121/77; PULSE 86; RESP 16; TEMP 36.6; O2SAT 99
[2024-10-16] MEDS: ondansetron 2 mg/ML SDV 2 mL 8 MG IVP (08:49)
[2024-10-16] MEDS: sodium chloride 0.9% 250 ML 75 ML IV (11:20)
[2024-10-16] MEDS: iron sucrose 200 MG in sodium chloride 0.9% (100 ml) 100 ML IV (11:20)
[2024-10-16 12:53] VITALS: BP 116/74; PULSE 88; RESP 16; TEMP 36.6; O2SAT 99
== END 2024-10-23 23:59 | disposition home or self-care (01) ==
DX: O99.019 Anemia complicating pregnancy, unspecified trimester (principal); Z79.899 Other long term (current) drug therapy
CPT/HCPCS: 96360; 96361; 96365; 96375; J1756; J2405; J7050; J7120

== ENCOUNTER 2024-10-29 13:55 | Outpatient (CLI) | payer OTHER, SELFPAY ==
[2024-10-29 13:55] VITALS: BMI 34.4
[2024-10-29 14:27] VITALS: BP 126/81; PULSE 90
[2024-10-29 14:42] VITALS: BP 125/75; PULSE 106
== END 2024-10-29 14:49 | disposition home or self-care (01) ==
LOC: OPOB 14:02 → OBGYN 14:10
PROVIDERS: Visit Provider Family Medicine
DX: O13.9 Gestational [pregnancy-induced] hypertension without significant proteinuria, unspecified trimester (principal); Z3A.00 Weeks of gestation of pregnancy not specified
CPT/HCPCS: 59025

== ENCOUNTER 2024-10-31 11:25 | Outpatient (CLI) | payer OTHER, SELFPAY ==
[2024-10-31 11:20] VITALS: BMI 34.7
[2024-10-31 11:35] VITALS: BP 136/79; PULSE 86
[2024-10-31 11:52] LABS: Nitrazine Paper, PH Negative
[2024-10-31 11:55] VITALS: BP 132/77; PULSE 90
== END 2024-10-31 12:10 | disposition home or self-care (01) ==
LOC: OPOB 11:27 → OBGYN 11:27
PROVIDERS: Visit Provider Family Medicine
DX: O13.9 Gestational [pregnancy-induced] hypertension without significant proteinuria, unspecified trimester (principal); Z3A.00 Weeks of gestation of pregnancy not specified
CPT/HCPCS: 59025; 83986; 99211

== ENCOUNTER 2024-11-06 05:11 | Inpatient (IN) | payer OTHER, SELFPAY ==
--- OUTSIDE RECORDS SUMMARY | 2024-04-30 03:37 | XMS_ITS ---
Author Organization [facility] Address [address] [place] [address] Care Team Providers Care Dehairing Machine Tender Name Role Phone SamariaGayathri Unavailable [phone] David Patel Unavailable [phone] REASON FOR VISIT New pt Encounters Encounter Location Date Provider Diagnosis [address] [place] [address] 04/30/2024 David Patel Plan Of Treatment No Information Progress Notes * Ashley PRIDEDOB:1994 (29 yo F)Acc No.[id number]:04/30/2024 Patient: Ashley GUZMAN :1995 A ge:29 Y S ex:Female Address:[address] [place] [address], [id number] * true * Date: Generated for Josie gonsalves/Clarissa/eTransmitting on: 0 11/06/2024 05:14 AM CDT
--- OUTSIDE RECORDS SUMMARY | 2024-05-07 10:45 | XMS_ITS ---
Author Organization [facility] Address [address] [place] [address] Care Team Providers Care Industrial Commercial Groundskeeper Name Role Phone SamariaKourtneyGayathri Unavailable [phone] REASON FOR VISIT CX APPT Encounters Encounter Location Date Provider Diagnosis [address] [place] [address] 05/07/2024 Gayathri Mera Plan Of Treatment No Information Progress Notes * Ashley PRIDEDOB:1994 (29 yo F)Acc No.[id number]:05/07/2024 Patient: Ashley GUZMAN :1995 A ge:29 Y S ex:Female Address:[address] [place] [address], [id number] * true * Date: Generated for Josie gonsalves/Clarissa/eTransmitting on: 0 11/06/2024 05:15 AM CDT
--- OUTSIDE RECORDS SUMMARY | 2024-05-15 10:30 | XMS_ITS ---
Author Organization [facility] Address [address] [place] [address] Care Team Providers Care Validation Scientist Name Role Phone Gayathri Mera Unavailable [phone] REASON FOR VISIT F/U AFTER US Encounters Encounter Location Date Provider Diagnosis [address] [place] [address] 05/15/2024 Gayathri Mera Plan Of Treatment No Information Progress Notes * Ashley PRIDEDOB:1994 (29 yo F)Acc No.[id number]:05/15/2024 Patient: Ashley GUZMAN Provider: Glenroy Mera MD :1995 A ge:29 Y S ex:Female Date:05/15/2024 Address:[address] [place] [address] [id number] Subjective: * Chief Complaints: * 1 . F/U AFTER US. * Medical History: Objective: * Vitals: Assessment: Plan: * Treatment: * Billing Information: * Visit Code: * Procedure Codes: * Electronic signature of Nelson Mera MD on 11/06/2024 at 05:14 AM CDT Sign off status: Pending * Provider: Glenroy Mera MD Date: 07/15/2023 Generated for Josie gonsalves/Clarissa/Chiquitaitting on: 11/06/2024 05:14 AM CDT
[2024-11-06] VITALS (30 sets, daily range): BP systolic 105–141; BP diastolic 61–85; PULSE 55–107; RESP 15–16; TEMP 36.4–36.6; O2SAT 97–98; BMI 34.9
--- OUTSIDE RECORDS SUMMARY | 2024-11-06 05:14 | XMS_ITS | Data Portability ---
Author Organization [facility], [facility] Address [address] [place] [address] Assessment No assessment recorded. Plan of Treatment Reminders Order Date Submit Date Provider Last Modified By Organization Details Last Modified Time Details Appointments Follow Up 15 2024 03:00P Glenroy Choudhury, PCB DESIGNER Not available Not available Not available Lab lipid panel, serum 2022 023 [facility] [place], [address], [address], [place], [address], 06/24/2023 04:27:33 CBC w/ auto diff 2022 023 [facility] [place], [address], [address], [place], [address], 06/24/2023 14:46:51 CMP, serum or plasma 2022 023 [facility] [place], [address], [address], [place], [address], 06/24/2023 04:27:32 Referral None recorded . Procedures None recorded . Surgeries None recorded . Imaging None recorded . Medication Orders None recorded . Patient TargetsNo targets recorded. Patient Instructions Encounter Date Encounter Id Patient Instructions Last Modified By Organization Details Last Modified Time 06/23/2023 [id number] Patient discharged to self to home in stable condition. Follow up instructions given. cynthia Not available 06/23/2023 12:37:17 06/20/2024 [id number] Patient discharged to self to home in stable condition. Follow up instructions given. cynthia Not available 06/21/2024 09:37:49 Reason for Referral None Reported. Results Created Date Observation Date Name Description Value Unit Range Abnormal Flag Note LastModifiedBy Organization Detail LastModifiedTime 06/23/2006/24/2023 COMP METAB OLIC PANEL sodium 138 mEq/L 135-14 6 Not Available [facility] [address] [place], [address], 06/24/2023 04:27:32 06/23/20 23 06/24/2023 COMP METAB OLIC PANEL potassium 4.2 mEq/L 3.5-5. 4 Not Available [facility] [address] [place], [address], 06/24/2023 04:27:32 06/23/20 23 06/24/2023 COMP METAB OLIC PANEL chloride 103 mEq/L 95-107 Not Available [facility] [address], [place], [address], 06/24/2023 04:27:32 06/23/20 23 06/24/2023 COMP METAB OLIC PANEL carbon dioxide 23 mEq/L 19-31 Not Available [facility] [address] [place], [place], [address], 06/24/2023 04:27:32 06/23/20 23 06/24/2023 COMP METAB OLIC PANEL anion gap 12 mEq/L 7-23 Not Available [facility] [address] [place], [address], 06/24/2023 04:27:32 06/23/20 23 06/24/2023 COMP METAB OLIC PANEL glucose non-fasting 86 mg/dL 70-139 Not Available [facility] [address] [place], [place], [address], 06/24/2023 04:27:32 06/23/20 23 06/24/2023 COMP METAB OLIC PANEL urea nitrogen (BUN) 8 mg/dL 6-20 Not Available [facility] [address] [place], [address], 06/24/2023 04:27:32 06/23/20 23 06/24/2023 COMP METAB OLIC PANEL creatinine 0.66 mg/dL 0.60-1 .30 Not Available [facility] [address] [place], [address], 06/24/2023 04:27:32 06/23/20 23 06/24/2023 COMP METAB OLIC PANEL 2020 CKD-epi eGFR-cr 122 mL/mi n/1.7 3m'2 >59 Not Available [facility] [address] [place], [address], 06/24/2023 04:27:32 06/23/20 23 06/24/2023 COMP METAB OLIC PANEL BUN/creatini ne ratio 12 ratio Not Available [facility] [address], [place], [address], 06/24/2023 04:27:32 06/23/20 23 06/24/2023 COMP METAB OLIC PANEL calcium total 9.3 mg/dL 8.5-10 .5 Not Available [facility] [address] [place], [address], 06/24/2023 04:27:32 06/23/20 23 06/24/2023 COMP METAB OLIC PANEL protein total 7.5 g/dL 6.1-8. 3 Not Available [facility] [address] [place], [address], 06/24/2023 04:27:32 06/23/20 23 06/24/2023 COMP METAB OLIC PANEL albumin 4.7 g/dL 3.5-5. 2 Not Available [facility] [address] [place], [address], 06/24/2023 04:27:32 06/23/20 23 06/24/2023 COMP METAB OLIC PANEL globulin 2.8 g/dL 1.7-4. 3 Not Available [facility] [address] [place], [address], 06/24/2023 04:27:32 06/23/20 23 06/24/2023 COMP METAB OLIC PANEL A/G ratio 1.7 ratio 0.9-2. 8 Not Available [facility] [address] [place], [address], 06/24/2023 04:27:32 06/23/20 23 06/24/2023 COMP METAB OLIC PANEL bilirubin total 0.4 mg/dL 0.0-1. 2 Not Available [facility] [address] [place], [address], 06/24/2023 04:27:32 06/23/20 23 06/24/2023 COMP METAB OLIC PANEL alkaline phosphatase 95 U/L 40-112 Not Available [facility] [address] [place], [address], 06/24/2023 04:27:32 06/23/20 23 06/24/2023 COMP METAB OLIC PANEL AST (SGOT) 38 U/L 9-40 Not Available [facility] [address] [place], [address], 06/24/2023 04:27:32 06/23/20 23 06/24/2023 COMP METAB OLIC PANEL ALT (SGPT) 49 U/L 5-40 high Not Available [facility] [address] [place], [address], 06/24/2023 04:27:32 06/23/20 23 06/24/2023 LIPID PROFI LE cholesterol 209 mg/dL <200 high Not Available [facility] [address] [facility] [place], [address], 06/24/2023 04:27:33 06/23/20 23 06/24/2023 LIPID PROFI LE triglyceride s 44 mg/dL 0-149 Not Available [facility] [address] [facility] [place], [address], 06/24/2023 04:27:33 06/23/20 23 06/24/2023 LIPID PROFI LE HDL cholesterol 83 mg/dL >39 Not Available [facility] [address] [facility] [place], [address], 06/24/2023 04:27:33 06/23/20 23 06/24/2023 LIPID PROFI LE LDL cholesterol 113 mg/dL <100 high Not Available [facility] [address] [facility] [place], [address], 06/24/2023 04:27:33 06/23/20 23 06/24/2023 LIPID PROFI LE non HDL cholesterol 126 mg/dL <130 Not Available [facility] [address] [facility] [place], [address], 06/24/2023 04:27:33 06/23/20 23 06/24/2023 LIPID PROFI LE coronary risk ratio 2.52 <4.44 Comme nt for LIPID PROFI LE Non-H DL Johana stero l is a jaylin r indic ator for cardi ovasc ular risk than LDL-C holes terol for patie nts who have incre ased trigl yceri tiffany or are non-f astin g. Non-H DL Johana stero l: < 130 mg/dL (Opti mal) < 160 mg/dL (Near Optim al/Ab ove Optim al) LDL Johana stero l: < 100 mg/dL (Opti mal) < 130 mg/dL (Near Optim al/Ab ove Optim al) Coron john Risk Ratio : [place] for femal es < 4.44 Not Available [facility] [address] [place], [place], [address], 06/24/2023 04:27:33 06/23/20 23 06/24/2023 CBC WITH DIFFE RENTI AL WBC 4.9 K/uL 4.0-11 .0 Not Available [facility] [address] [place], [place], [address], 06/24/2023 14:46:51 06/23/20 23 06/24/2023 CBC WITH DIFFE RENTI AL RBC 4.59 M/uL 4.00-5 .50 Not Available [facility] [address] [place], [place], [address], 06/24/2023 14:46:51 06/23/20 23 06/24/2023 CBC WITH DIFFE RENTI AL hemoglobin 12.8 g/dL 12.0-1 6.0 Not Available [facility] [address] [place], [place], [address], 06/24/2023 14:46:51 06/23/20 23 06/24/2023 CBC WITH DIFFE RENTI AL hematocrit 39.5 % 36.0-4 8.0 Not Available [facility] [address] [place], [place], [address], 06/24/2023 14:46:51 06/23/20 23 06/24/2023 CBC WITH DIFFE RENTI AL MCV 86.1 fL 78.0-1 02.0 Not Available [facility] [address] [place], [place], [address], 06/24/2023 14:46:51 06/23/20 23 06/24/2023 CBC WITH DIFFE RENTI AL MCH 27.9 pg 25.0-3 5.0 Not Available [facility] [address] [place], [address], 06/24/2023 14:46:51 06/23/20 23 06/24/2023 CBC WITH DIFFE RENTI AL MCHC 32.4 g/dL 30.0-3 8.0 Not Available [facility] [address] [place], [place], [address], 06/24/2023 14:46:51 06/23/20 23 06/24/2023 CBC WITH DIFFE RENTI AL RDW 12.9 % 11.5-1 6.0 Not Available [facility] [address] [place], [address], 06/24/2023 14:46:51 06/23/20 23 06/24/2023 CBC WITH DIFFE RENTI AL platelet count 287 K/uL 150-45 0 Not Available [facility] [address] [place], [place], [address], 06/24/2023 14:46:51 06/23/20 23 06/24/2023 CBC WITH DIFFE RENTI AL abs neutrophils 2.7 K/uL 1.8-7. 0 Not Available [facility] [address] [place], [place], [address], 06/24/2023 14:46:51 06/23/20 23 06/24/2023 CBC WITH DIFFE RENTI AL abs lymphocytes 1.8 K/uL 1.0-4. 0 Not Available [facility] [address] [place], [place], [address], 06/24/2023 14:46:51 06/23/20 23 06/24/2023 CBC WITH DIFFE RENTI AL abs monocytes 0.2 K/uL 0.1-1. 1 Not Available [facility] [address] [place], [place], [address], 06/24/2023 14:46:51 06/23/20 23 06/24/2023 CBC WITH DIFFE RENTI AL abs eosinophils 0.1 K/uL 0.0-0. 5 Not Available [facility] [address] [place], [place], [address], 06/24/2023 14:46:51 06/23/20 23 06/24/2023 CBC WITH DIFFE RENTI AL abs basophils 0.0 K/uL 0.0-0. 3 Not Available [facility] [address] [place], [place], [address], 06/24/2023 14:46:51 06/23/20 23 06/24/2023 CBC WITH DIFFE RENTI AL abs immature grans 0.0 K/uL 0.0-0. 1 Not Available [facility] [address] [place], [place], [address], 06/24/2023 14:46:51 06/23/20 23 06/24/2023 CBC WITH DIFFE RENTI AL neutrophils 54.5 % Not Available [facility] [address] [place], [place], [address], 06/24/2023 14:46:51 06/23/20 23 06/24/2023 CBC WITH DIFFE RENTI AL lymphocytes 37.7 % Not Available [facility] [address] [place], [place], [address], 06/24/2023 14:46:51 06/23/20 23 06/24/2023 CBC WITH DIFFE RENTI AL monocytes 5.1 % Not Available [facility] [address] [place], [place], [address], 06/24/2023 14:46:51 06/23/20 23 06/24/2023 CBC WITH DIFFE RENTI AL eosinophils 2.1 % Not Available [facility] [address] [facility] [place], [address], 06/24/2023 14:46:51 06/23/20 23 06/24/2023 CBC WITH DIFFE RENTI AL basophils 0.4 % Not Available [facility] [address] [place], [address], 06/24/2023 14:46:51 06/23/20 23 06/24/2023 CBC WITH DIFFE RENTI AL immature grans 0.2 % Not Available [facility] [address] [place], [address], 06/24/2023 14:46:51 06/23/20 23 06/24/2023 CBC WITH DIFFE RENTI AL nucleated RBCs <1.0 /100_ WBCs <1 Not Available [facility] [address] [facility] [place] [place], [address], 06/24/2023 14:46:51 Result Notes None recorded. Problems Name Problem SNOMED Code Status Onset Date Resolution Date Notes Provider Name and Address Organization Details Recorded Time Routine care Active 2023 ANNY Choudhury PCB DESIGNER [address], [place], [address], [facility] 4 09:37:22 Essential hypertension 42588719 Active 2022 Roxanne infante, [facility] 3 11:38:45 Herpes simplex type 1 infection 611540268 Active 2023 ANNY Choudhury, PCB DESIGNER [address], [place], [address], [facility] 4 09:29:09 Problem Notes None recorded. Procedures Surgical History Date Name Laterality Status Provider Name and Address Organization Details Recorded Time removal of ectopic fetus completed [facility] 06/23/2023 11:40:26 section completed [facility] 06/23/2023 11:40:38 Meniscal trnspl knee w/scpe completed [facility] 06/23/2023 11:40:53 repair of elbow completed [facility] 06/23/2023 11:41:13 mouth repair completed [facility] 06/23/2023 11:41:42 Imaging Results None recorded. Procedure Notes None recorded. Medical Equipment None Reported. Allergies No known drug allergies Medications Name Sig Start Date Stop Date Status Note LastModified by Organization Details LastModified Time acyclovir 400 mg tablet Take 1 tablet 5 times a day by oral route for 5 days. 2023 active Not Available Not Available Not Avai lable Lovenox 60 mg/0.6 mL subcutaneous syringe Inject 0.6 mL every day by subcutaneou s route. active Not Available Not Available No t Available active Not Available Not Avai lable Not Available Vitals Date Recorded Body weight Body mass index (BMI) Provider Name and Address Organization Details Last Updated DateTime 06/23/2023 50287.77 g 27.6 kg/m2 ANNY ALBERTS, PCB DESIGNER [address], [place], [address], [facility] 06/23/2023 11:53:55 Date Recorded Body height Respiratory rate Heart rate Oxygen saturation Oxygen saturation in Arterial blood by Pulse oximetry Body temperature Systolic blood pressure Diastolic blood pressure Provider Name and Address Organization Details Last Updated DateTime 175.26 cm 18 /min 81 /min 97 % 97 % 97.9 [degF] 114 mm[Hg] 58 mm[Hg] Roxanne [facility] 11:33:32 Date Recorded Body height Body mass index (BMI) Body weight Heart rate Respiratory rate Body temperature Oxygen saturation Oxygen saturation in Arterial blood by Pulse oximetry Systolic blood pressure Diastolic blood pressure Provider Name and Address Organization Details Last Updated DateTime 4 175.26 cm 30.9 kg/m2 90508.8 1 g 72 /min 18 /min 97.8 [degF] 98 % 98 % 110 mm[Hg] 56 mm[Hg] Roxanne Lopez [facility] 16:04:54 Social History Question Answer Notes LastModified by Breathometer Details LastModified Time Tobacco Smoking Status Never Smoker Roxanne Lopez null, [facility] 06/23/2023 11:39:33 In The 14 Days Before Symptom Onset, Have You Had Close Contact With A Laboratory-confirm ed COVID-19 While That Case Was Ill? No Information n ot available 06/23/2023 In The 14 Days Before Symptom Onset, Have You Had Close Contact With A Person Who Is Under Investigation For COVID-19 While That Person Was Ill? No Information not available 06/23/2023 Have You Been To An Area Known To Be High Risk For COVID-19? No Information not available 06/23/2023 What Type Of Diet Are You Following? REGULAR Information n ot available 06/23/2023 What Was The Date Of Your Most Recent Tobacco Screening? 06/20/2024 Information not available 06/20/2024 How Many Children Do You Have? 1 Information not available 06/23/2023 What Is Your Relationship Status? Information not available 06/23/2023 Do You Use Your Seat Belt Or Car Seat Routinely? Yes Information not available 06/23/2023 Are You Sexually Active? Yes Information not available 06/23/2023 Has Tobacco Cessation Counseling Been Provided? No Information not available 06/23/2023 Sex: Unknown Functional Status Question Answer Note LastModified by [employer]ath[employer] Details LastModified Time Do you use any illicit or recreational drugs? No Information not available 06/23/2023 Do you or have you ever used any other forms of tobacco or nicotine? No Information not available 06/23/2023 What is your level of alcohol consumption? None Information not available 06/23/2023 Are you currently employed? Yes Information not available 06/23/2023 Do you have transportation difficulties? No Information not available 06/23/2023 Are you able to walk? YESWOREST Information not available 06/23/2023 Are you able to care for yourself? 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 Moderate Information not available 06/23/2023 Mental Status Question Answer Note LastModified by Organization D etails LastModified Time Do you feel stressed (tense, restless, nervous, or anxious, or unable to sleep at night)? [id number] Information not available 06/23/2023 Family History Nothing Reported. Medical History Condition Response Coronary Artery Disease N Gout N Kidney Stones N Depression N COPD N HX Inpatient Psych Admission N Congestive Heart Failure N Parkinson's N Anxiety Disorder N Muscle, Joint, or Bone Problems N Vision or Eye Problems N Arthritis N Serious Illness or Injuries N Blood Disease N Seizures / Epilepsy N Congenital Anomalies N Cancer N Stroke N Bladder or Kidney Problems N Hospital Admission other than N High Cholesterol N Liver Disease N Fibromyalgia N Pulmonary Embolism / DVT N Kidney Disease N Prostate N Ear or Hearing Problems N ADD or ADHD N Thyroid Problems N Skin Problems N Anemia N Constipation N Diabetes N Bedwetting N Eczema, Hives, or other skin conditions N Tuberculosis N Pacemaker / Defibrillator N Diverticulitis N Dementia N Asthma N Allergies N GERD / Reflux N Heart Disease N Hypertension Y Chicken Pox N Osteoporosis N Gynecological History Statement/Question Response Age at Menarche 14 Current Control Method Flow Light Date of LMP 06/08/2023 LMP Definite Obstetrics History GPAL:G 6 P 1 0 5 1 Type Value Full Term 1 Spontaneous 3 Living 1 Ectopics 2 Total 6 Past Encounters Encounter ID Performer Location Encounter Start Date Encounter Closed Date Diagnosis/Indication Diagnosis SNOMED-CT Code Diagnosis ICD10 Code Diagnosis Note [id number] ANNY ALBERTS APRN [facility] [address] [place] [id number] 06/23/2023 11:19:42 06/23/2023 15:27:26 Adult health examination 649255292 Z00.00 1. Reach and stay at a healthy weight.2. Get at least 30 minutes of exercise on most days of the week. Walking is a good choice.3. Do not smoke. Smoking can make health problems worse.4. Always wear sunscreen on exposed skin. Make sure to use a broad-spec trum sunscreen that has a sun protection factor (SPF) of 30 or higher. Use it every day, even when it is cloudy.5. See a dentist one or two times a year for checkups and to have your teeth cleaned.6. Wear a seat belt in the car.7. Limit alcohol to 2 drinks a day. Too much alcohol can cause health problems.8 . Continue pap smear every 3 years and pelvic exams yearly.9. Flu vaccine due. Covid19 booster due.10. Repeat wellness in 1 year.11. Wellness labs today. Hyperlipid emia screening 793950235 Z13.220 1. Screening lipid today. [id number] CAROLA HOUSER [facility] [address] [place], [place] [address] 06/20/2024 15:11:31 06/20/2024 16:46:43 Adult health examination 371073561 Z00.00 1. Reach and stay at a healthy weight.2. Get at least 30 minutes of exercise on most days of the week. Walking is a good choice.3. Do not smoke. Smoking can make health problems worse.4. Always wear sunscreen on exposed skin. Make sure to use a broad-spec trum sunscreen that has a sun protection factor (SPF) of 30 or higher. Use it every day, even when it is cloudy.5. See a dentist one or two times a year for checkups and to have your teeth cleaned.6. Wear a seat belt in the car.7. Limit alcohol to 2 drinks a day. Too much alcohol can cause health problems.8 . Continue pap smear every 3 years and pelvic exams yearly.9. Flu vaccine due. Covid19 booster due.10. Repeat wellness in 1 year.11. Routine labs in 6 months. Routine [facility] 888417630 Z34.92 1. Continue vitamins with folic acid.2. Report any vaginal bleeding or concerns.3 . Continue to see OBGYN for routine visits. Health Concerns Section Related Observation LastModified by Organization Detai ls LastModified Time None Recorded Concern Status LastModified by Organization Details LastModified Time None Recorded Advance Directives Directive None Recorded Payers Encounter Date Sequence Insurance Name Policy Number Policy Pederson Covered Member ID Pederson Member ID Guarantor Name 06/23/2023 1 [facility] [id number] Ashley Muñoz [id number] Ashley Toni 06/20/2024 1 [facility] [id number] Ashley Muñoz [id number] Ashley Muñoz Notes Date Note Type Note Provider Name and Address Organization Details Recorded Time 3 text/html Adult Health ExaminationReported bypatient.Compliance:com pliant with medications; compliant with follow-up visits Hospital Admissionlocation: (C); reason for admit eptopic ; medical records obtained Diet and Nutrition:healthy diet;diet is high in salt; discussed vitamin and supplement use; discussed maintaining calcium balance; discussed diet improvement Physical Activity:exercises on a regular basis; good physical condition; discussed exercise habits Vision:no vision problems Hearing:no loss of hearing Fracture Risk:no history of fractures; no recent explained fracture; previous musculoskeletal injuries Depression Risk:never feels sad, empty, or tearful; no loss of interest in activities; no significant changes in weight; no sleep disturbances or insomnia; no agitation; no loss of energy; no feelings of worthlessness or guilt; no thoughts of suicide; no history of depression; no history of mood disorders Preventive measures:Encourage self breast examination; Encourage regular mammograms starting age 40; Followed with yearly pap smears behavioral historyalcohol use: non-user; elicit drug use: non-user; tobacco use: never smoked Patient is a 28 y/o female that presents to the clinic today for AWV. She reports no complaints or concerns today. She is scheduled to see the dentist today. She is due for an eye exam and will schedule. She is due for a flu vaccine and plans to have today. Pap smear was performed and normal 1 year ago. ANNY ALBERTS APRN [address], [place], [phone], [facility] 06/23/2023 12:39:55 4 text/html Adult Health ExaminationReported bypatient.Compliance:com pliant with medications; compliant with follow-up visits Physicians involved in care:primary care provider: (Zion Alberts APRN) Diet and Nutrition:healthy diet;diet is high in salt; discussed vitamin and supplement use; discussed maintaining calcium balance; discussed diet improvement Physical Activity:exercises on a regular basis; good physical condition; discussed exercise habits Vision:no vision problems Hearing:no loss of hearing Fracture Risk:no history of fractures; no recent explained fracture; previous musculoskeletal injuries Depression Risk:never feels sad, empty, or tearful; no loss of interest in activities; no significant changes in weight; no sleep disturbances or insomnia; no agitation; no loss of energy; no feelings of worthlessness or guilt; no thoughts of suicide; no history of depression; no history of mood disorders Preventive measures:Encourage self breast examination; Encourage regular mammograms starting age 40; Followed with yearly pap smears behavioral historyalcohol use: non-user; elicit drug use: non-user; tobacco use: never smoked Patient is a 28 y/o female that presents to the clinic today for AWV. She reports no complaints or concerns today. She is due for a flu vaccine and covid booster. She does not desire today. Pap smear was performed and normal within last year. She is 17 weeks and seeing OBGYN routinely. She is taking vitamins and folic acid. ANNY ALBERTS APRN [address], [place], [phone], [facility] 06/21/2024 09:38:05 OBGyn Episode No OBEpisode recorded.
--- OUTSIDE RECORDS SUMMARY | 2024-11-06 05:14 | XMS_ITS | Patient Health Record ---
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 Name Role Phone Gayathri Mera Unavailable [phone] Stanislaw Ragsdalerosalindlinda Unavailable David Patel Unavailable [phone] Results Component Value Reference Range Notes OB Eric [id number] Reviewed date:04/05/2024 11:04:07 AM Interpretation: Performing Lab: Notes/Report: See Below For Report US OB Early Gest Read See Below For Report Reason For Referral No Information Medications Medication SIG (Take, Route, Frequency, Duration) Notes Start Date End Date Status Flonase Allergy Relief 50 MCG/ACT 1 spray in each nostril Nasally Once a day Active Pseudoephedrine HCl ER 120 MG 1 tablet a s needed Orally every 12 hrs for 10 days 03/05/2024 Active Social History Tobacco Use: Social History Observation Description Date Details (start date - stop date) Never Smoker NA - NA Tobacco Control (Standard) Question Answer Notes Tobacco use: Nonsmoker AUDIT-C (Standard) Question Answer Notes Did you have a drink containing alcohol in the p ast year? No Points 0 Interpretation Negative Problems Problem Type SNOMED Code ICD Code Onset Dates Problem Status W/U Status Risk Notes Problem [id number] Acute recurrent maxillary sinusitis (J01.01) Active confirmed Vital Signs Heart Rate 84 /min 03/05/2024 Temperature 98.2 degrees Fahrenheit 03/05/2024 Blood pressure diastolic 70 mm Hg 03/05/2024 Oximetry 98 % 03/05/2024 Height-cm 172.72 cm 03/05/2024 Weight-kg 84.55 kg 03/05/2024 Height 68 in 03/05/2024 Blood pressure systolic 120 mm Hg 03/05/2024 Weight 186.4 lbs 03/05/2024 BMI 28.34 kg/m2 03/05/2024 Encounters Encounter Location Date Provider Diagnosis [facility] [address] [place] [id number] 03/05/2024 Mann Ragsdale Acute recurrent maxillary sinusitis J01.[address] [place] [address] 04/05/2024 Gayathri Mera Less than 8 weeks gestation of Z3A.01 and Encounter for care in first trimester of first Z34.[address] [place] [address] 11/15/2023 Gayathri Mera [address] [place] [address] 03/29/2024 Gayathri Mera [address] [place] [address] 04/09/2024 Gayathri Mera [address] [place] [address] 04/10/2024 Gayathri Mera [address] [place] [address] 04/22/2024 Gayathri Mera [address] [place] [address] 04/30/2024 David Patel [address] [place] [address] 05/07/2024 Gayathri Mera Assessments Encounter Date Diagnosis (ICD Code) Assessment Notes Treatment Notes Treatment Clinical Notes Section Notes 03/05/2024 Acute recurrent maxillary sinusitis (ICD-10 - J01.01) 04/05/2024 Less than 8 weeks gestation of (ICD-10 - Z3A.01) 04/05/2024 Encounter for care in first trimester of first (ICD-10 - Z34.01) Plan Of Treatment No Information Insurance Providers Payer Name Payer Address Payer Phone Subscriber Number Group Number Insured Name Patient Relationship to Insured Coverage Start Date Coverage End Date [facility] [address] [address] [place] [address] [phone] [id number] [phone] ToniAshley Self - patient is the insured Medications Administered Medication Instructions Date of Administration Dosage Notes Cheko 03/05/2024 1 g Medical (General) History Surgical History Surgery Date(Month/Year) [place] left knee arthroscopy Hospitalization History Reason Date(Month/Year) c section
--- OUTSIDE RECORDS SUMMARY | 2024-11-06 05:15 | XMS_ITS | Data Portability ---
Author Organization [facility], [place], [facility] Address [address] [address] Care Team Providers Care Heel Padder Name Role Phone EBENEZER ROXANNE Primary Care Provider Unavailabl e Assessment No assessment recorded. Plan of Treatment Reminders Order Date Submit Date Provider Last Modified By Organization Details Last Modified Time Details Appointments None recorded. Lab test, urine 2022 023 [facility] ([facility]), [address] [place] [address], [phone], 3 08:33:15 beta-HCG, quantitativ e, serum or plasma 2022 023 [place] [employer] [facility], [address] [place] [address], [facility] [address] [place], [address], 3 08:33:15 Referral None recorded. Procedures None recorded. Surgeries None recorded. Imaging None recorded. Medication Orders prednisone 20 mg tablet [address] [facility], [address] [place], [address], 5 11:54:59 benzonatate 200 mg capsule [address] [facility], [address] [place], [address], 5 11:53:42 progesteron e micronized 200 mg capsule 2022 023 bayron Hooker [facility], [address], [place], [address], 13:14:01 progesteron e micronized 200 mg capsule 2022 024 LARISSA [facility], [address], [place], [address], 14:25:38 Patient TargetsNo targets recorded. Patient Instructions Encounter Date Encounter Id Patient Instructions Last Modified By Organization Details Last Modified Time 01/31/2023 [id number] Pts specialist freddy Davis ordered hcg. Pts levels are too low to be able to dx ectopic. I am concerned her trend is not encouraging since she had 01/24 level of 3, 8 level of 25. We will recheck a level 48hrs after her last one to see the trend. Pts successful she was on progesterone suppositories early on - she would like to try that again. I do not think it would be harmful so I'm okay with trying it. Await tomorrows hcg to determine next steps. Not available 01/31/2023 13:44:39 10/28/2024 [id number] We need to obtai n the patient's records from [facility] to confirm her information. She should follow-up in 2 to 3 days for us to discuss repeat section. She was given a prescription to perform twice weekly NSTs over at the hospital and was instructed to schedule them 3 to 4 days apart. Not available 11/04/2024 13:43:56 Reason for Referral None Reported. Results Created Date Observation Date Name Description Value Unit Range Abnormal Flag Note LastModifiedBy Organization Detail LastModifiedTime 01/17/20 23 01/17/2023 HCG, TOTAL , QN HCG, total, qn <5 mIU/m L normal Refer ence Range Nonpr egnan t or preme nopau cary <5 Postm enopa usal <10 Value s from diffe rent assay metho ds may vary. The use of this assay to monit or or to diagn ose patie nts with cance r or any condi tion unrel ated to pregn kinga has not been clear ed or appro darshan by the FDA or the [facility] er of the assay . Not Available [facility] [address] [place], [address], 01/17/2023 08:33:15 01/17/20 23 01/17/2023 HCG, QL, URINE HCG, ql, urine NEGATI VE negati ve normal Not Available [facility] [address] [address], [place], [address], 01/17/2023 13:59:39 03/13/20 23 03/13/2023 SARS CoV 2 RNA, QL, nasop haryn x COVID negati ve Not Available [facility]) [address] [place] [address], [phone], 03/13/2023 11:28:05 02/06/20 23 01/30/2023 1st trime ster scree n* No observ ation record ed. [address] [place], [address], 02/06/2023 09:25:27 03/28/2003/20/2023 US, pelgene s, compl ete No observ ation record ed. [address] [place], [address], 03/28/2023 13:56:41 05/26/20 23 05/26/2023 imagi ng/di agnos tic resul t No observ ation record ed. [email or web address] [address] [place], [address], 05/26/2023 13:47:32 05/26/20 23 05/26/2023 lab* No observ ation record ed. [address] [place], [address], 05/29/2023 09:49:14 Result Notes None recorded. Problems Name Problem SNOMED Code Status Onset Date Resolution Date Notes Provider Name and Address Organization Details Recorded Time Acute upper respiratory infection 66848387 Active 2022 Sheldon Shin MD [address] [place], [address], [place] [facility] 3 11:27:[address] 68297981 Active [address] 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 5 12:00:58 Problem Notes None recorded. Procedures Surgical History Date Name Laterality Status Provider Name and Address Organization Details Recorded Time 2 Date of Last Pap Smear completed DENIS LARES [facility] 12/07/2022 16:02:10 6 delivery [address] [facility] 12/07/2022 16:03:52 operation on fallopian tube completed MAGAN FRAUSTO [facility] 10/28/2024 11:57:01 Imaging Results Imaging Date Name Status LastModified by Organiz ation Details LastModified Time 01/30/2023 1st trimester screen* completed [address] [place], [address], 02/06/2023 09:25:27 03/20/2023 US, pelvis, complete completed [address] [place], [address], 03/28/2023 13:56:41 05/26/2023 imaging/diagno stic result completed [email or web address] [address] [place], [address], 05/26/2023 13:47:32 05/26/2023 lab* completed [address] [place], [address], 05/29/2023 09:49:14 Procedure Notes None recorded. Medical Equipment None Reported. Allergies No known drug allergies Medications Name Sig Start Date Stop Date Status Note LastModified by Organization Details LastModified Time amoxicillin 500 mg capsule Take 2 capsules twice a day by oral route for 7 days. 12/07 completed Not Available Not Available Not Available azithromyci n 250 mg tablet TAKE 2 TABLETS BY MOUTH ON DAY 1, AND THEN TAKE 1 TABLET BY MOUTH ONCE A DAY ON DAY 2 THROUGH DAY 5 10/28 completed Not Available Not Available Not Available benzonatate 200 mg capsule Take 1 capsule 3 times a day by oral route as needed for 10 days. 10/28 completed Not Available Not Available Not Available prednisone 20 mg tablet TAKE 1 TABLET BY MOUTH ONCE DAILY 10/28 completed Not Available Not Available Not Available nifedipine ER 30 mg tablet,exte nded release TAKE 1 TABLET BY MOUTH ONCE DAILY active Not Available Not Available No t Available ondansetron 8 mg disintegrat ing tablet Place 1 tablet every 8 hours by transling ual route. 12/07 completed Not Available Not Available Not Available progesteron e micronized 200 mg capsule Take 1 capsule every day by oral route for 12 days. 09/19 completed Not Available Not Available Not Available ferrous sulfate 325 mg (65 mg iron) tablet,monty yed release TAKE 1 TABLET BY MOUTH ONCE DAILY 10/29 completed Not Available Not Available Not Available doxycycline hyclate 100 mg tablet TAKE 1 TABLET BY MOUTH TWICE DAILY FOR 7 DAYS 10/28 completed Not Available Not Available Not Available enoxaparin 60 mg/0.6 mL subcutaneou s syringe INJECT 1 SYRINGE SUBCUTANE OUSLY IN ABDOMEN ONCE DAILY. WAIT UNTIL INSTRUCTE D TO START BY A COORDINAT OR 10/28 completed Not Available Not Available Not Available Folplex 2.2 mg-25 mg-0.5 mg tablet TAKE 1 TABLET BY MOUTH ONCE DAILY 10/28 completed Not Available Not Available Not Available Kelnor 135 (28) 1 mg-35 mcg tablet TAKE 1 TABLET BY MOUTH ONCE DAILY TAKE ACTIVE PILLS ONLY 10/28 completed Not Available Not Available Not Available Vitals Date Recorded Body height Body mass index (BMI) Body weight Body temperature Oxygen saturation Oxygen saturation in Arterial blood by Pulse oximetry Heart rate Systolic blood pressure Diastolic blood pressure Provider Name and Address Organization Details Last Updated DateTime 3 175.26 cm 23.9 kg/m2 00749.9 6 g 97.8 [degF] 96 % 96 % 90 /min 130 mm[Hg] 82 mm[Hg] [facility] 3 11:19:20 Date Recorded Body height Body mass index (BMI) Body weight Oxygen saturation Oxygen saturation in Arterial blood by Pulse oximetry Heart rate Respiratory rate Body temperature Systolic blood pressure Diastolic blood pressure Provider Name and Address Organization Details Last Updated DateTime 4 175.26 cm 26.9 kg/m2 90343.8 1 g 97 % 97 % 80 /min 20 /min 98.9 [degF] 110 mm[Hg] 70 mm[Hg] REGGIE ANG [facility] 4 13:09:31 Date Recorded Body height Body mass index (BMI) Body weight Body temperature Oxygen saturation Oxygen saturation in Arterial blood by Pulse oximetry Heart rate Systolic blood pressure Diastolic blood pressure Provider Name and Address Organization Details Last Updated DateTime 5 175.26 cm 34.7 kg/m2 258573. 21 g 97.1 [degF] 97 % 97 % 102 /min 158 mm[Hg] 84 mm[Hg] [facility] 5 11:54:47 Date Recorded Body height Body mass index (BMI) Body weight Body temperature Oxygen saturation Oxygen saturation in Arterial blood by Pulse oximetry Heart rate Systolic blood pressure Diastolic blood pressure Provider Name and Address Organization Details Last Updated DateTime 5 175.26 cm 34.9 kg/m2 736739. 8 g 97.9 [degF] 98 % 98 % 106 /min 115 mm[Hg] 65 mm[Hg] DENIS LARES [facility] 5 16:12:47 Date Recorded Body height Body mass index (BMI) Body weight Oxygen saturation Oxygen saturation in Arterial blood by Pulse oximetry Heart rate Respiratory rate Body temperature Provider Name and Address Organization Details Last Updated DateTime 3 175.26 cm 24.9 kg/m2 59945.3 2 g 98 % 98 % 67 /min 18 /min 98 [degF] PEDRO HAYNES [facility] 3 12:54:28 Social History None recorded. Functional Status None recorded. Mental Status None recorded. Family History Relationship Description Onset Age of this Age Resolved Age Notes LastModified by Organization Details LastModified Time Father No current problems or disability [email or web address] Not available 11/2024 16:13:33 Mother No current problems or disability [email or web address] Not available 11/2024 16:13:33 Medical History Condition Response Coronary Artery Disease N Gout N Other N Blood Diseases N Kidney Stones N Hyperthyroidism N Blood Transfusion N Breast Cancer N Depression N Hypothyroidism N Lung Disease N COPD N Defects or Inherited Disease N Developmental or Behavioral Disorders N Breast Problem N Difficulty Swallowing N Anesthesia Complications N Meniere's disease N Anxiety Disorder N Muscle, Joint, or Bone Problems N Vision or Eye Problems N Arthritis N Polyps N Infertility N Cancer N Varicosities N Stroke N Endometriosis N Bladder or Kidney Problems N High Cholesterol N Liver Disease N Fibromyalgia N Headaches N Kidney Disease N Allergies/Hayfever N Heart Problems N Ear or Hearing Problems N Hospitalizations N Thyroid Problems N GI Problems N ADD/ADHD N Skin Problems N Eating Disorder N Anemia N Constipation N Mental Illness N Ovarian Cancer N Diabetes N Bedwetting N Seizures/Epilepsy N Tuberculosis N Eczema N Diverticulitis N Abuse/Domestic Violence N Asthma N Reflux/GERD N Hepatitis N Heart Disease N Pulmonary Embolism N Pre-Eclampsia N Hypertension Y Chronic Ear Infections N Osteoporosis N Chicken Pox N Autism Spectrum Disorder (ASD) N Thrombophilias N Gynecological History Statement/Question Response Abnormal Pap N Date of Last Pap Smear 06/26/2021 Obstetrics History GPAL:G 10 P 1 0 8 1 Type Value Full Term 1 Spontaneous 7 Living 1 Ectopics 1 Total 10 Immunizations Vaccine Type Date Status Note Provider Nam e and Address Organization Details Recorded Time MMR [address] [facility] 12/07/2022 16:01:25 MMR 9 completed DENIS SALASH LARES [facility], [facility] 12/07/2022 16:01:25 COVID-19, mRNA, LNP-S, PF, 30 mcg/0.3 mL dose 2 completed DENIS MODESTA LARES [facility], [facility] 12/07/2022 16:01:25 COVID-19, mRNA, LNP-S, PF, 30 mcg/0.3 mL dose 2 completed DENIS LARES [facility], [facility] 12/07/2022 16:01:25 Tdap 8 completed DENIS MODESTAChris LARES [facility] 12/07/2022 16:01:25 Tdap 3 completed DENIS MODESTA LARES [facility] 12/07/2022 16:01:25 Hep B, unspecified formulation 5 completed DENIS MODESTA LARES [facility] 12/07/2022 16:01:25 Hep B, unspecified formulation 9 completed DENIS MODESTA LARES [facility] 12/07/2022 16:01:25 Hep B, unspecified formulation 5 completed DENIS SALASH LARES [facility], [facility] 12/07/2022 16:01:25 OPV 9 completed DENIS MODESTA LARES [facility] 12/07/2022 16:01:25 polio, unspecified formulation 5 completed DENIS SALASH LARES [facility] 12/07/2022 16:01:25 polio, unspecified formulation 4 completed DENIS MODESTA LARES [facility] 12/07/2022 16:01:25 polio, unspecified formulation 4 completed DENIS MODESTA LARES naresh, [facility] 12/07/2022 16:01:25 Influenza, split virus, trivalent, preservative 3 completed DENIS MODESTA LARES naresh, [facility] 12/07/2022 16:01:25 Influenza, split virus, trivalent, PF 5 completed DENIS infante, [facility] 12/07/2022 16:01:25 Hep A, ped/adol, 2 dose 8 completed DENIS MODESTA LARES [facility] 12/07/2022 16:01:25 Hep A, ped/adol, 2 dose 9 completed DENIS MODESTA LARES [facility] 12/07/2022 16:01:25 Hep A, ped/adol, 2 dose 8 completed DENIS LARES [facility] 12/07/2022 16:01:25 Hib (PRP-T) 5 completed DENIS LARES [facility] 12/07/2022 16:01:25 Hib (PRP-T) 5 completed DENIS LARES [facility] 12/07/2022 16:01:25 Hib (PRP-T) 4 completed DENIS LARES [facility] 12/07/2022 16:01:25 Hib (PRP-T) 4 completed DENIS LARES [facility] 12/07/2022 16:01:25 DTaP 5 completed DENIS infante, [facility] 12/07/2022 16:01:25 DTaP 5 completed DENIS LARES null, [facility] 12/07/2022 16:01:25 DTaP 9 completed DENIS LARES null, [facility] 12/07/2022 16:01:26 DTaP 4 completed DENIS LARES null, [facility] 12/07/2022 16:01:26 DTaP 4 completed DENIS infante, [facility] 12/07/2022 16:01:26 Influenza, split virus, quadrivalent, PF 8 completed DENIS infante, [facility] 12/07/2022 16:01:26 Influenza, split virus, trivalent, preservative 5 completed Not Available [facility], [facility] 10/29/2024 16:07:17 Tdap 5 completed Not Available [facility], [facility] 10/29/2024 16:07:17 Past Encounters Encounter ID Performer Location Encounter Start Date Encounter Closed Date Diagnosis/Indication Diagnosis SNOMED-CT Code Diagnosis ICD10 Code Diagnosis Note [id number] PATTIE JACKSON PA-C [facility] ([facility]) [address] [place] [phone] 5 11/05/2022 09:17:50 11/05/2022 10:33:28 Streptococcal sore throat 21247208 J02.0 [id number] MELVA PRAJAPATI [facility] ([facility]) [address] [place] [phone] 5 12/02/2022 12:59:01 12/02/2022 16:38:26 Urine test positive 502585635 Z32.01 at home. Concerned she is miscarryin g and would like repeated urine HCG today. History of 6 miscarriages 042374779 Z87.59 Stomach cramps 51604125 R10.9 Moderate v aginal bleeding 601788771 N93.9 [id number] Roxanne Lobo MD [facility] ([facility]) [address] [place] [id number] 12/07/2022 15:47:15 2023 11:21:26 Recurrent miscarriage 237867436 N96 referral to [facility] for recurrent miscarriag e. [id number] OZZIE MOCTEZUMA NP [facility] ([facility]) [address] [place] [id number] 5 01/16/2023 12:31:34 01/16/2023 17:34:23 Urine test positive 691976186 Z32.01 Reports she has had 6 positive urine tests at homeUrine test performed in clinic - will notify of resultsHCG quantitati ve test performed - discussed time frame for results, will notify resultsInc rease PO fluidsRest Return to clinic if any changes, any worsening, any concernsPa tient verbalized understand ing of plan. [id number] Roxanne Lobo MD [facility] ([facility]) [address] [place] [id number] 5 01/31/2023 10:56:20 01/31/2023 13:47:20 Recurrent miscarriage 439972864 N96 lab quantitati ve bhcg STAT on 02/01/23 Threatened miscarriage 49827472 O20.0 [id number] ISABELA URIAS [facility] ([facility]) [address] [place] [id number] 5 09/20/2023 12:53:07 09/20/2023 17:04:43 Acute upper respiratory infection 90174193 J06.9 Suspected flu. Can take benzonatat e PRN for cough. Encouraged patient to push fluids and use cool mist humidifier at night. Can take tylenol/ib uprofen as needed for pain and fever. Encouraged patient to return for further evaluation if no improvemen t in 3-5 days. If severe SOB or chest pain occurs, go to ED. Patient verbalized understand ing. Inspiratory wheezing 315 22562 R06.2 Will start prednisone today for wheezing. If chest pain or severe SOB occurs, should go to ED. Patient verbalizes understand ing. [id number] Roxanne Lobo MD [facility] ([facility]) [address] [place] [id number] 10/28/2024 11:34:05 10/28/2024 13:45:55 Gestation period, 35 weeks 12555432 Z3A.35 Normal 7402860 2 Z34.83 - induced hypertension 41932588 O13.3 Patient has been following with maternal-f etal medicine but not a regular OB. She is scheduled for a repeat section at 37 weeks 1 day gestation in [facility]. For multiple reasons the patient is not comfortabl e delivering in [facility] and came today for a consult. We discussed risk benefits and alternativ es. The patient has been getting weekly biophysica l profiles at [facility]. If she is transferri ng to my care we will get twice weekly NSTs. We will plan to do section around 37 weeks 0 days gestation. I discussed with the patient that at her NSTs if she has any unusually elevated blood pressures or abnormal lab work we may need to proceed with sooner. She is extremely anxious and feels like she needs to deliver sooner rather than later due to all her complicati ons. 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 [id number] Roxanne Lobo MD [facility] ([facility]) [address] [place] [id number] 5 10/29/2024 16:07:01 11/05/2024 22:28:03 Gestation period, 36 weeks 27893793 Z3A.36 Multigravida 275482112 Z 34.83 Chronic hy pertension complicating AND/OR reason for care during 15894223 O10.919 Twice weekly NSTs. She is getting once weekly biophysica l profiles and 24-hour urines with [facility]. Delivery has been recommende d at 37 weeks gestation. Past pregn kinga history of section 764467709 Z98.891 Plan for repeat section Iron defic iency anemia secondary to inadequate dietary iron intake 628494022 D50.8 She received iron infusions that improved her hemoglobin . Health Concerns Section Related Observation LastModified by Organization Det ls LastModified Time None Recorded Concern Status LastModified by Organization Details LastModified Time None Recorded Advance Directives Directive None Recorded Payers Encounter Date Sequence Insurance Name Policy Number Policy Pederson Covered Member ID Pederson Member ID Guarantor Name 01/16/2023 1 *SELF PAY* Poornima Muñoz 01/31/2023 1 [facility] [id number] Ashley Fletcher Goldy [id number] Ashley Fletcher Toni 09/20/2023 1 [facility] [id number] [place] B Toni [id number] Ashley Muñoz 10/28/2024 1 R [id number] [place] B Toni [id number] Ashley Muñoz 10/29/2024 1 [facility] [id number] [place] B Toni [id number] Ashley Muñoz Notes Date Note Type Note Provider Name and Address Organization Details Recorded Time 01/16/2023 text/html 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 SHE HAS HAD 8 MISCARRIAGES, INCLUDING A TUBAL . HAS 1 LIVING SON WITH HELP OF EARLY PROGESTERONE SHOTS.PATIENT HAD FAINT POSITIVE TEST TODAY AND WOULD LIKE QUANT BETA TO TRACK NUMBERS TO BE ABLE TO START PROGESTERONE IF TRULY POSITIVE. Brent Land, [address] [place] [address], [phone], [facility] 01/16/2023 17:08:33 01/31/2023 text/html she had hcg drawn yesterday and it was 35. slightly up from her level about 15 hrs prior. today she hilario feels like she has a sore throat, so she knows she is making herself sick over this.... Roxanne Lobo MD [address] [place] [address], [phone], [facility] 01/31/2023 13:45:02 01/31/2023 text/html jr ob routineRep orted bypatient.Associated Symptoms:no abdominal pain; no vaginal discharge; no urgency; no emesis; no constipation;cramping ;fever; Bled on January 24 Roxanne Lobo MD [address] [place] [address], [phone], [facility], LOtoniel. 01/31/2023 13:45:02 09/20/2023 text/html Sinusitis/Allerg yRepo rted bypatient.Location:[facility] Quality:weak voice;hoarseness;burn ing;congested Severity:moderate;cotto its daily activities Duration:frequent Context:recent upper respiratory infection;recent sick contacts Alleviating factors:antihistamine ; OTC meds ibuprophen; using Tylenol, and dayquil no help Aggravating factors:upper respiratory infection (a cold) Associated Symptoms:nasal discharge from both nostrils;fever/chills ;cough non productive;nausea or vomiting;sore throat;thick phlegm in throat;constantly clearing the throat;nasal discharge;frequent breathing through the mouth Risk Factors:no current smoking or tobacco use Patient is a 28 year old female who presents to the walk in clinic today for sinus pressure, cough, SOB, wheezing, sore throat, and fever. Patient states she has had symptoms for 5 days. Reports the SOB and wheezing is worsening. Patient has tried OTC medications with minimal relief. No history of asthma. ISABELA URIAS [address] [place] [address], [phone], [facility], Andreia. 09/20/2023 16:30:06 10/28/2024 text/html ob routineRep orted bypatient.Associated Symptoms:no abdominal pain; no cramping; normal movement; no bleeding; no frequency; no urgency; no emesis; no constipation;contract ions;headache;dizzine ss Roxanne Lobo MD [address] [place] [address], [phone], [facility], Andreia. 11/04/2024 13:45:56 10/29/2024 text/html ob routineRep orted bypatient.Associated Symptoms:no abdominal pain; no cramping; normal movement; no bleeding; no dysuria; no constipation; no dizziness;contraction s;nausea;emesis;edema ;headache Roxanne Lobo MD [address] [place] [address], [phone], [facility], Lisa 11/05/2024 15:32:07 OBGyn Episode Ob Episode Information Episode Created Date Number of Fetuses Patient Bloodtype Patient rh Status Prepregnancy Weight lbs Domestic Partner Domestic Partner Phone Father Name Percher Status 10/29/19 25 1 OPEN Fetus Data First Name Last Name Admitted to NICU Weight (g) Sex Living Outcome Pediatric Complications Fetus ID Race Codes Race Delivery Type [id number] Jose Calculation Initial Jose Date Initial Exam Date Initial Exam Provider Initial Ultrasound Date Last Menstrual Period Date Ultra Sound Weeks Gestation 10/28/2024 0 Eighteen To Twenty Week Jose Update Ultra Sound Date Fundal Height At Umbil Quickening Date Ultra Sound Latest Weeks Gestation Final Jose Confirmed By Final Jose Confirmed Date Final Jose Date Ultra Sound Latest Days Gestation 0 11/27/19 25 0 Pre-aissatou Flowsheet Flowsheet Date 10/28/2024 Suero Score Blood Edema Fundus Height Fundus Units Glucose Ketones Leukocytes Nitrite Labor Signs Protein Cervic Dilation Cervic Effacement Cervic Station Type Weight in lbs Pre/Post Dialysis Refused With clothes [id number] BP Diastolic BP Location Tested BP Systolic BP Type 84 R arm 158 sitting Fetus Heart Rate Present Fetus Movement Comments Flowsheet Date 10/29/2024 Suero Score Blood Edema Fundus Height Fundus Units Glucose Ketones Leukocytes Nitrite Labor Signs Protein Cervic Dilation Cervic Effacement Cervic Station 36 cm none none trace Type Weight in lbs Pre/Post Dialysis Refused Weight [id number] BP Diastolic BP Location Tested BP Systolic BP Type 65 115 Fetus Heart Rate Present A 150 Fetus Movement A Yes Comments Repeat . Girl. Madni Willis. No BC or tubal. Peds [facility]. Menstrual History Last Menstrual Date Menses Monthly On Bcp Conception Prior Menses Frequency Hcg Plus Date Menarche Onset Age Genetic Screening And Infection History Question Response Note Patient's Age Will Be 35 Yea rs Or Older At Estimated Date of Delivery false Thalassemia (Welsh, Kiswahili, Mediterranean, Or Background): MCV < 80 false Neural Tube Defect (Meningomyelocele, Spina Bifi da, Or Anencephaly) false Congenital Heart Defect false Down Syndrome false Franco-Sachs (eg, Sabianism, Cajun, Prydeinig-Muhlenberg) f alse Sheri Disease false Sickle Cell Disease Or Trait () false Hemophilia Or Other Blood Disorders false Muscular Dystrophy false Cystic Fibrosis false [place]'s Chorea false Intellectual Disability/Autism false If Yes, Was Person Tested For Fragile X? false Other Inherited Genetic Or Chromosomal Disorder false Maternal Metabolic Disorder (eg, Type 1 Diabetes , PKU) false Patient Or Baby's Father Had A Child With Defects Not Listed Above false Medications (including Suppl ements, Vitamins, Herbs, OTC Drugs), Illicit/Recreational Drugs, Alcohol true BP meds If Yes, Agent(s) And Strength/Dosage false Any Other Genetic History true MTHFR Live With Someone With TB Or Exposed To TB false Patient Or Partner Has History Of Genital Herpes false Rash Or Viral Illness Since Last Menstrual Perio d false History Of STD, Gonorrhea, Chlamydia, HPV, Syphi lis false Other Infection History false History of HIV false History of Hepatitis false Prior GBS-infected child false Hemoglobinopathy Or Carrier false Other Structural Defect false Recent Travel History Outside of Country false Mental Retardation/Autism false Delivery Information Delivery Date Delivery Type Labor Anesthesia Weeks Gestation Incision Type Labor Labor Length Hrs Delivered By Post Complications Tubal Sterilization Discharge Date Comments Discharge Information Feeding Method Contraceptive Method Maternal HG B and HCT Levels Ob Episode Information Episode Created Date Number of Fetuses Patient Bloodtype Patient rh Status Prepregnancy Weight lbs Domestic Partner Domestic Partner Phone Father Name Percher Status 10/29/19 25 1 CLOSED Fetus Data First Name Last Name Admitted to NICU Weight (g) Sex Living Outcome Pediatric Complications Fetus ID Race Codes Race Delivery Type [id number] Jose Calculation Initial Jose Date Initial Exam Date Initial Exam Provider Initial Ultrasound Date Last Menstrual Period Date Ultra Sound Weeks Gestation 0 Eighteen To Twenty Week Jose Update Ultra Sound Date Fundal Height At Umbil Quickening Date Ultra Sound Latest Weeks Gestation Final Jose Confirmed By Final Jose Confirmed Date Final Jose Date Ultra Sound Latest Days Gestation 0 0 Menstrual History Last Menstrual Date Menses Monthly On Bcp Conception Prior Menses Frequency Hcg Plus Date Menarche Onset Age Delivery Information Delivery Date Delivery Type Labor Anesthesia Weeks Gestation Incision Type Labor Labor Length Hrs Delivered By Post Complications Tubal Sterilization Discharge Date Comments 1 [facility] ina 35.5 In [facility], emergent c/s due to blood pressure. They induced her and labor did not progress and lost babies heart rate, bp sathya rocketed. Rancher Discharge Information Feeding Method Contraceptive Method Maternal HG B and HCT Levels
[2024-11-06 05:44] LABS: Basophils % 0.1 %; Eosinophils # 0.1 10^3/uL (0.0-0.8); Eosinophils % 0.9 %; Hematocrit 31.3 % (36-47); Lymphocytes # 1.4 10^3/uL (0.8-4.8); Lymphocytes % 20.9 %; Mean Corpuscular HGB Conc 33.5 g/dL (30-55); Mean Corpuscular Hemoglobin 28.1 pg (27-33); Mean Corpuscular Volume 83.7 fl (85-98); Mean Platelet Volume 10.4 fL (7.4-10.4); Monocytes # 0.5 10^3/uL (0.2-0.9); Neutrophils # 4.73 10^3/uL (1.8-7.7); Neutrophils % 70.7 %; Nucleated Red Blood Cells % 0 %; Platelet Count 220 10^3/cmm (157-399); Red Blood Count 3.74 10^6/uL (3.85-5.65); Red Cell Distribution Width 13.6 % (12.1-15.1)
[2024-11-06] MEDS: famotidine 20 mg/2 mL INJ IVP (06:54)
[2024-11-06] MEDS: citric acid-sodium citrate 30 mL UDC PO (06:55)
[2024-11-06] MEDS: metoclopramide 5 mg/mL SDV 2 mL 10 MG IVP (06:55)
--- NOTE | 2024-11-06 07:05 | P.HP_ITS ---
Providers/Chief Complaint 2 Admitting Physician: Roxanne Lobo MD Primary Care Provider: Roxanne Lobo MD Chief Complaint: History of Present Illness Ashley Muñoz is a 29 year old female at 37 weeks 0 days gestation whose has been complicated by chronic hypertension, IVF , anemia requiring iron transfusions and persistent nausea and vomiting. The patient has been followed throughout her by [facility] Dr. Ramos. Recommendations were made for delivery at 37 weeks due to the patient's combination of complications. Additionally the patient was getting weekly biophysical profiles and at 34 weeks she failed her biophysical profile and was hospitalized for monitoring. Patient says that she also has had times where she has had elevated LFTs and intermittent severely elevated blood pressures. She has only been seeing me since last week and we have been doing twice weekly NSTs which have all been reactive. The highest blood pressure we have had was in the 150s in clinic. Patient is taking nifedipine ER 30 mg p.o. daily and has been since approximately 18 weeks gestation. She was a prior section and risk benefits and alternatives of repeat section were discussed with the patient in detail. She wishes to proceed. Review of Systems 2 Narrative: She has had good movement, no bleeding, no contractions, some swelling. Medications/Allergies Home Medications ?Medication ?Instructions ?Recorded ?Confirmed ?Last Taken ?Type aspirin 81 mg chewable tablet 81 mg PO DAILY 07/08/24 11/06/24 11/05/24 History levomefolate 7.5 mg-algal oil 1 cap PO DAILY 08/23/24 10/29/24 10/31/24 10:00 History 90.314 mg capsule (L-Methylfolate Forte) Allergies Allergy/AdvReac Type Severity Reaction Status Date / Time No Known Allergies Allergy Verified 11/06/24 05:55 PFSH Acute 2 PFSH: Medical History Chronic hypertension MTHFR gene mutation Surgical History Hx of section 2020: Hx of primary for nonreassuring heart tones Hx of unilateral salpingectomy right salpingectomy after tubal ectopic Family History Denies family history of Colon cancer Ovarian cancer Diabetes Heart disease Breast cancer Hypertension Uterine cancer Thyroid disease Stroke Social History Smoking and tobacco/nicotine status: never used tobacco/nicotine Female Reproductive History: : 10 Vitals/I&O/Wt Last Vital Signs Temp 97.6 F 11/06/24 05:15 Pulse 78 11/06/24 05:33 BP 118/74 11/06/24 05:33 O2 Del Method Room Air 11/06/24 04:55 Weight last 48 hrs Weight 107.275 kg Physical Exam 2 Narrative: Alert and oriented, resting in bed, heart regular rate and rhythm, lungs clear to auscultation bilaterally, abdomen is gravid and nontender, the patient appears to be overall slightly edematous, SCDs are already in place. Data 11/06/24 05:23 A&P Assessment and plan (1) Hx of section: Plan for repeat section with and postoperative care (2) Chronic hypertension: This presented around 18 weeks gestation. Patient states that she did not have high blood pressures outside of but since she was diagnosed early in the they considered chronic. She did have to take blood pressure medicine after her last for a while. My plan at this time is to hold her nifedipine after delivery and monitor pressures (3) Anxiety: Just of note because the patient tends to worry excessively (4) Nausea and vomiting during : Has been managed by MFM and has required hospitalization for IV fluids. This is expected to resolve postdelivery (5) Anemia complicating , unspecified trimester: Her starting hemoglobin today is 10.5. Monitor postdelivery. PDMP PDMP Reviewed: Not Reviewed Attestations 2 Medical Necessity Statement*: Planned repeat section with routine postoperative care Coding Level of Care Code Acute Code for Chg Fwd Diagnoses Hx of section Z98.891 Chronic hypertension I10 Anxiety F41.9 Nausea and vomiting during O21.9 Anemia complicating , unspecified trimester O99.019
--- NOTE | 2024-11-06 07:06 | P.ANESASSM_ITS ---
Pre-Anesthetic Assessment Height/Weight: Height 1.75 m Weight 107.275 kg Temp Pulse BP O2 Del Method 97.6 F 78 118/74 Room Air 11/06/24 05:15 11/06/24 05:33 11/06/24 05:33 11/06/24 04:55 Preop Diagnosis: Prior Operation Date: 11/06/24 07:20 Proposed Procedures p Section 64382, O10.019(Not Applicable) - Roxanne Lobo MD Was Clonidine taken within 24 hours: N/A Last intake: Intake Last Liquid Date 11/05/24 Last Liquid Time 21:00 Last Solid Date 11/05/24 Last Solid Time 20:30 Social No alcohol and No tobacco Exam alert, oriented x 3, clear to auscultation bilaterally and regular rate & rhythm Airway Submandibular: within normal limits Cervical ROM: within normal limits Mallampati: Class II Dentition: full History/ROS No significant history except as noted and No significant complaints Pulmonary None reported CV/HEM Hypertension None reported Hepatic None reported GI None reported Metabolic None reported Musc/skel None reported Neuropsych None reported Anesthetic Plan ASA status: 2 Anesthesia: Anesthesia Evaluation and Regional (specify below) (SAB) Risk of > 500 ml blood loss (7ml/kg in children): No Medications/Allergies Home Medications ?Medication ?Instructions ?Recorded ?Confirmed ?Last Taken ?Type aspirin 81 mg chewable tablet 81 mg PO DAILY 07/08/24 11/06/24 11/05/24 History levomefolate 7.5 mg-algal oil 1 cap PO DAILY 08/23/24 10/29/24 10/31/24 10:00 History 90.314 mg capsule (L-Methylfolate Forte) Allergies Allergy/AdvReac Type Severity Reaction Status Date / Time No Known Allergies Allergy Verified 11/06/24 05:55 [facility] Anesthesia Medical History Chronic hypertension MTHFR gene mutation Surgical History Hx of section 2020: Hx of primary for nonreassuring heart tones Hx of unilateral salpingectomy right salpingectomy after tubal ectopic Family History Denies family history of Colon cancer Ovarian cancer Diabetes Heart disease Breast cancer Hypertension Uterine cancer Thyroid disease Stroke Social History Smoking and tobacco/nicotine status: never used tobacco/nicotine Female Reproductive History : 10 Data Anesthesia 11/06/24 05:23 Short CBC 11/06/24 Range/Units 05:23 WBC 6.70 (3.29-11.43) 10^3/uL Hgb 10.50 L (11.27-16.99) g/dL Hct 31.3 L (36-47) % MCV 83.7 L (85-98) fl Plt Count 220 (157-399) 10^3/cmm Neut % (Auto) 70.7 % Neut # (Auto) 4.73 (1.8-7.7) 10^3/uL Blood Bank 11/06/24 05:23 Blood Type A Positive Rho(D) Type Rh positive Antibody Screen Negative
--- NOTE | 2024-11-06 08:35 | P.OP_ITS ---
Operative Report Date of procedure: November 06, 2024 Pre-op diagnosis: Repeat section IUP at 37 weeks 0 days gestation Chronic hypertension IVF Iron deficiency anemia Persistent nausea and vomiting Surgeon: Roxanne Lobo MD Estimated blood loss (mL): 400 IV fluids (mL): 1,900 Urine output (mL): 200 Complications: Uterine incision required to be J-ed up by 2cm. Procedure: After informed consent the patient was taken to the OR where spinal anesthesia was administered. She was prepped and draped in normal sterile fashion in dorsal supine position with a left lateral tilt. After adequate spinal anesthesia was verified a Pfannenstiel skin incision was made through the previous scar and carried through to the underlying layer of fascia sharply. The fascial incision was then extended laterally using the Mayos. The fascia was grasped with Keli clamps and the underlying rectus muscles were dissected off taking care to avoid injury to the underlying tissue. There was a mild amount of midline scar tissue. The peritoneum was entered bluntly using a hemostat and then the incision site was manually stretched. The bladder blade was then inserted. The vesicouterine peritoneum was scarred to the uterus but it was entered sharply using a Metzenbaums and a bladder flap was created digitally. The bladder blade was then reinserted. Uterine incision was made in a transverse fashion in the lower uterine segment. The lower uterine segment was relatively thick and there was a copious amount of bleeding from the incision so to avoid risk of sharp injury to the infant, bandage scissors were used to dissect and rupture the amniotic membrane. Clear fluid was noted. Several attempts were made to push the through the opening however it seemed to be too tight. I first dissected the left rectus muscles but this still did not lead to delivery. I then decided to J up the uterus only by up to 2 cm, left of midline, and the was then easily delivered atraumatically. There was bulb suction of the mouth and naris at deli very. The had spontaneous cry. She was briefly shown to her parents and then handed to the waiting pediatric nurse. The placenta was delivered using fundal pressure. The uterus was then exteriorized from the abdomen and a dry sponge was used to clear the uterus of clots and debris. The J portion of the incision was repaired using 0 chromic in a running locked fashion. The transverse incision was then repaired using 0 chromic in a running locked fashion. A second layer of the same suture was used in an imbricating manner. Both the J portion and the transverse and the transverse incision received an imbricating layer. After adequate hemostasis was obtained the uterus was then returned to the abdomen. Irrigation was used to clear the gutters of clots and debris and the uterine incision was reinspected for hemostasis. The peritoneum was then reapproximated using 4-0 Vicryl in a running fashion. The subfascial tissue was inspected for hemostasis and the fascia was then re approximated using 0 Vicryl in a running fashion. The subcutaneous tissue was irrigated. The subcutaneous tissue was then reapproximated using 4-0 Vicryl in a running fashion. The Bovie was used to release the skin edges and then the skin was reapproximated using 4-0 Vicryl on a Howie needle. Steri-Strips and a pressure bandage were applied and patient went to recovery in good condition. Sponge instrument and needle counts were correct.
--- NOTE | 2024-11-06 09:00 | ANE.PACU2 ---
Inpatient post-anesthesia follow up: Airway intact: Yes Vital signs: Temperature 98 F Pulse Rate 80 Respiratory Rate 16 Blood Pressure 128/79 Pulse Oximetry 97 Oxygen Delivery Me thod Room Air Oxygen Flow Rate Fraction of Inspir ed Oxygen Hydration adequate: Yes Nausea and vomiting: No Pain level: 1 Mental status: Baseline
[2024-11-06] MEDS: dextrose 5%-lactated ringers 1,000 ML 125 ML IV (09:10)
[2024-11-06] MEDS: hyDROXYzine 25 mg Capsule 50 MG PO (09:46)
[2024-11-06] MEDS: ondansetron 2 mg/ML SDV 2 mL 4 MG IVP (11:58)
[2024-11-06] MEDS: ketorolac 30 mg/mL INJ IVP ×2 (13:57→21:19)
[2024-11-06] MEDS: sodium chloride 0.9% 500 ML 999 ML IV (14:36)
[2024-11-06] MEDS: FUROsemide 40 mg Tablet 20 MG PO (16:50)
[2024-11-06 23:06] LABS: Hematocrit 25.1 % (36-47); Mean Corpuscular HGB Conc 33.1 g/dL (30-55); Mean Corpuscular Volume 84.8 fl (85-98); Mean Platelet Volume 10.8 fL (7.4-10.4); Platelet Count 227 10^3/cmm (157-399); Red Blood Count 2.96 10^6/uL (3.85-5.65); Red Cell Distribution Width 13.7 % (12.1-15.1); White Blood Count 13.27 10^3/uL (3.29-11.43)
[2024-11-07] MEDS: ketorolac 30 mg/mL INJ IVP (03:22)
[2024-11-07 03:26] VITALS: BP 128/79; PULSE 80
[2024-11-07] MEDS: ferrous sulfate EC 325 mg Tablet PO (09:07)
[2024-11-07] MEDS: PRENATAL VIT NO.130/IRON/FOLIC 1 EACH TABLET PO (09:07)
[2024-11-07] MEDS: docusate sodium 100 mg Capsule PO (09:07)
[2024-11-07 09:11] VITALS: BP 150/80; PULSE 117
[2024-11-07 10:29] VITALS: BP 133/75; PULSE 121
[2024-11-07 10:32] VITALS: PULSE 95
--- NOTE | 2024-11-07 12:39 | PM.DCS ---
Discharge Providers Date of Admission: 11/06/24 05:11 Date of Discharge: November 07, 2024 Attending Provider at Admission: Roxanne Lobo MD Attending Provider at Discharge: Roxanne Lobo MD Primary Care Provider: Roxanne Lobo MD Diagnoses at Discharge Discharge Diagnosis (1) Hx of section: Status: Acute Permanent problem details: 2020: Hx of primary for nonreassuring heart tones (2) Chronic hypertension: Status: Acute (3) Anxiety: Status: Acute (4) Nausea and vomiting during : Status: Resolved (5) Anemia complicating , unspecified trimester: Status: Acute Reason for Visit Reason for Visit: Hospital Course Hospital Course This is a 29-year-old G10 now P2 who underwent went a repeat section. She is ambulating, tolerating a regular diet, has very good pain control and is desperately requesting discharge home. Her blood pressures have been within normal limits or only mildly elevated off of the blood pressure medication. Physical Exam Narrative: Alert and oriented, sitting up in bedside chair, heart regular rate and rhythm, lungs clear to auscultation bilaterally, abdomen is soft with appropriate postoperative tenderness, incision is clean dry and intact with Steri-Strips in place, extremities have 1+ edema but no calf tenderness Urinary Catheter Management: Gallardo: Cath Placed During This Visit: yes, but has since been removed by the nurse Reason for Continuing Indwelling Catheter: Decision to DC Catheter Urinary Catheter Date of Insertion: 11/06/24 Urinary Catheter Time of Insertion: 07:15 Date Urinary Catheter Removed: 11/06/24 Time Urinary Catheter Discontinued: 21:00 Discharge Data Studies Completed and Pending Pending at discharge Category Date Time Status High Risk PP Hemorrhage Stat Lab 11/06/24 13:25 Received Laboratory Results WBC 13.27 10^3/uL (3.29-11.43) H 11/06/24 21:10 RBC 2.96 10^6/uL (3.85-5.65) L 11/06/24 21:10 Hgb 8.30 g/dL (11.27-16.99) L 11/06/24 21:10 Hct 25.1 % (36-47) L 11/06/24 21:10 MCV 84.8 fl (85-98) L 11/06/24 21:10 MCH 28.0 pg (27-33) 11/06/24 21:10 MCHC 33.1 g/dL (30-55) 11/06/24 21:10 RDW 13.7 % (12.1-15.1) 11/06/24 21:10 Plt Count 227 10^3/cmm (157-399) 11/06/24 21:10 MPV 10.8 fL (7.4-10.4) H 11/06/24 21:10 Neut % (Auto) 70.7 % 11/06/24 05:23 Lymph % (Auto) 20.9 % 11/06/24 05:23 Wells % (Auto) 7.0 % 11/06/24 05:23 Eos % (Auto) 0.9 % 11/06/24 05:23 Baso % (Auto) 0.1 % 11/06/24 05:23 Neut # (Auto) 4.73 10^3/uL (1.8-7.7) 11/06/24 05:23 Lymph # (Auto) 1.4 10^3/uL (0.8-4.8) 11/06/24 05:23 Wells # (Auto) 0.5 10^3/uL (0.2-0.9) 11/06/24 05:23 Eos # (Auto) 0.1 10^3/uL (0.0-0.8) 11/06/24 05:23 Baso # (Auto) 0.0 10^3/uL (0.0-0.1) 11/06/24 05:23 Nucleated RBC % (auto) 0 % 11/06/24 05:23 Nucleated RBCs # 0.0 /100WBC 11/06/24 05:23 Blood Type A Positive 11/06/24 05:23 Rho(D) Type Rh positive 11/06/24 05:23 Antibody Screen Negative 11/06/24 05:23 Vitals Last Vital Signs Temp 98 F 11/06/24 08:55 Pulse 95 11/07/24 10:32 Resp 16 11/06/24 08:55 BP 133/75 11/07/24 10:29 Pulse Ox 97 11/06/24 08:55 O2 Del Method Room Air 11/06/24 04:55 Discharge Plan Discharge Patient Disposition: Home Condition: Stable Prescriptions: New docusate sodium 100 mg Capsule 100 mg PO BID Qty: 60 0RF ibuprofen 800 mg Tablet 800 mg PO TID PRN (Reason: Abdominal Discomfort) Qty: 30 0RF hydrocodone-acetaminophen 5-325 mg Tablet 1 - 2 tab PO Q4H PRN (Reason: Moderate To Severe Pain) Qty: 15 0RF Discontinued aspirin 81 mg tablet,chewable 81 mg PO DAILY L-Methylfolate Forte 7.5-90.314 mg Capsule 1 cap PO DAILY Discharge Orders: Discharge Order (Routine); Ordered 11/07/24 Ordered By: Roxanne Lobo Referrals: Roxanne Lobo MD [Primary Care Provider, [facility]] - 11/11/24 2:30 pm Referral Note: * Your incision check with Dr. Lobo is on 11/11/2024 at 2:30pm Discharge Diet: Usual diet Discharge Activity: Limit activity as instructed Patient Instructions: Depression (DC), Opioid Safety (DC), Preeclampsia and Eclampsia After Delivery (GEN), Hemorrhage (DC), OB - Edu/Lashell, OB Discharge Report, OB Food/Drug Interaction Guide, OB Care at Home, Opioid Safety, Abnormal Bleeding Activity Restrictions/Additional Instructions: No lifting greater than 10 pounds for 2 weeks. Keep Steri-Strips clean and dry. No driving while taking opioid pain medication. Nothing per vagina for 6 weeks. Discharge Attestations Time Spent in Discharge Care*: less than 30 min Quality Metrics Clinical Quality Measures [ No reported AMI, CVA or VTE this stay] Coding Level of Care Code Acute Code for Chg Fwd Diagnoses Hx of section Z98.891 Chronic hypertension I10 Anxiety F41.9 Nausea and vomiting during O21.9 Anemia complicating , unspecified trimester O99.019
[2024-11-07 13:47] VITALS: BP 133/70; PULSE 120
[2024-11-07 14:26] VITALS: BP 133/70; PULSE 95; RESP 16; TEMP 36.6
[2024-11-09 13:32] LABS: High Risk PP Hemorrhage BBK Notified
== END 2024-11-07 14:27 | disposition home or self-care (01) | DRG 788 ==
PROVIDERS: Admitting Provider Family Medicine; PCP Family Medicine; Visit Provider Family Medicine
PROC: 10D00Z1 Extraction of Products of Conception, Low, Open Approach (ICD-10-PCS; CPT 59514; principal; 2024-11-06 07:00)
DX: O16.4 Unspecified maternal hypertension, complicating childbirth (principal); O99.02 Anemia complicating childbirth; D64.9 Anemia, unspecified; O99.344 Other mental disorders complicating childbirth; F41.9 Anxiety disorder, unspecified; Z3A.37 37 weeks gestation of pregnancy; Z37.0 Single live birth; O34.211 Maternal care for low transverse scar from previous cesarean delivery; N85.8 Other specified noninflammatory disorders of uterus
CPT/HCPCS: 36415; 51702; 59025; 59409; 85025; 85027; 86850; 86900; 96374; 96376; 99211; J1100; J1200; J1885; J2274; J2405; J2765; J3010; J3490; J7030; J7040; J7121; J9999

== ENCOUNTER 2025-01-22 16:30 | Outpatient (CLI) | payer OTHER, SELFPAY | END 2025-01-22 16:31 | disposition home or self-care (01) | LOC: LAB 16:35 | DX: Z01.89 Encounter for other specified special examinations (principal) | CPT/HCPCS: 84702 ==

== ENCOUNTER 2025-03-24 11:26 | Outpatient (CLI) | payer OTHER, SELFPAY | END 2025-03-24 11:27 | disposition home or self-care (01) | PROVIDERS: Visit Provider Family Medicine | DX: O20.0 Threatened abortion (principal) | CPT/HCPCS: 84702 ==